=== PATIENT | female | born 1985 | race Caucasian/White ===

== ENCOUNTER → 2016-10-20 | Outpatient (CLI) | payer BC ==
--- NOTE | 2016-10-21 10:15 | MR ---
EXAMINATION: MRI right shoulder HISTORY: Pain COMPARISON: Radiographs dated 10/15/2016 TECHNIQUE: Multiplanar and multisequence images obtained through the right shoulder without contrast . FINDINGS: There is a type II acromion. There is a small amount of fluid signal within the rotator cu ff interval, with mildly increased signal within the adjacent myotendinous supraspinatus. There is a trace subdeltoid fluid signal. Otherwise the supraspinatus and infraspinatus tendons appear intact. The long head biceps tendon is present within the bicipital groove. The subscapularis and teres min or tendons appear intact. There appears to be focal thinning of the mid glenoid articular cartilage. The inferior glenohumeral ligament appears intact. There is no joint effusion. No suspicious bone m arrow signal changes. IMPRESSION: 1. Increased signal within the rotator cuff interval with likely tendinopathy the myotendinous junct ion of the supraspinatus. 2. Mild focal articular cartilage thinning within the glenohumeral joint.
== END ==
LOC: MW.MRI 12:55
PROVIDERS: ATTEND Family Medicine
DX: M25.511 Pain in right shoulder (principal); M25.811 Other specified joint disorders, right shoulder
CPT/HCPCS: 73221-26-RT; 73221-RT

== ENCOUNTER 2018-01-27 18:00 | Inpatient (IN) | payer BC ==
[2018-01-27] MEDS ORDERED: Sodium Chloride 0.9% 2.5 ML Syringe FLUSH PRN (18:28)
[2018-01-27] MEDS ORDERED: Methylergonovine 0.2 MG/1 ML Amp IM PRN (18:28)
[2018-01-27] MEDS ORDERED: Nalbuphine 10 MG/1 ML Vial IVPUSH PRN (18:28)
[2018-01-27] MEDS ORDERED: Butorphanol 1 MG/ML SDV IVPUSH PRN (18:28)
[2018-01-27] MEDS ORDERED: Carboprost Tromethamine 250 MCG/1 ML Amp IM PRN (18:28)
[2018-01-27] MEDS ORDERED: Water For Irrigation,Sterile 1,000 ML Container IRR PRN (18:28)
[2018-01-27] MEDS ORDERED: Tranexamic Acid 1,000 MG in Sodium Chloride 0.9% 100 ML IV PRN (18:28)
[2018-01-27] MEDS ORDERED: Sodium Chloride 0.9% 10 ML Syringe FLUSH PRN (18:28)
[2018-01-27] MEDS ORDERED: Misoprostol 200 MCG Tab PO PRN (18:28)
[2018-01-27] MEDS ORDERED: Lidocaine 1% 50 ML MDV INJECT PRN (18:28)
[2018-01-27] MEDS ORDERED: Oxytocin/0.9 % Sodium Chloride 30 UNIT/500 ML BAG IV SCH (18:30)
[2018-01-27] MEDS: Lactated Ringers 1,000 ML IV SCH ×2 (19:40→20:14)
[2018-01-27] MEDS ORDERED: Bupivacaine 0.5% 10 ML SDV ONE (20:16)
--- NOTE | 2018-01-27 20:39 | PCM.PREANE ---
Preanesthetic Assessment - Anesthesia/Transfusion/Family Hx Anesthesia History: Prior Anesthesia Without Reaction Family History of Anesthesia Reaction: No Transfusion History: No Prior Transfusion(s) - Review of Systems General: No Symptoms Pulmonary: No Symptoms Cardiovascular: No Symptoms Gastrointestinal: No Symptoms Neurological: No Symptoms Other: Reports: None - Physical Assessment Height: 5 ft 4 in Weight: 69.4 kg ASA Class: 2 Mental Status: Alert & Oriented x3 Airway Class: Mallampati = 2 Dentition: Reports: Normal Dentition Thyro-Mental Finger Breadths: 3 Mouth Opening Finger Breadths: 3 ROM/Head Extension: Full Lungs: Clear to Auscultation, Normal Respiratory Effort Cardiovascular: Regular Rate, Regular Rhythm - Lab Values: Laboratory Last Values WBC 13.41 K/uL (4.0-11.0) H 01/27/18 18:50 RBC 3.75 M/uL (4.30-5.90) L 01/27/18 18:50 Hgb 10.9 g/dL (12.0-16.0) L 01/27/18 18:50 Hct 32.3 % (36.0-46.0) L 01/27/18 18:50 MCV 86.1 fL (80.0-98.0) 01/27/18 18:50 MCH 29.1 pg (27.0-32.0) 01/27/18 18:50 MCHC 33.7 g/dL (31.0-37.0) 01/27/18 18:50 RDW Std Deviation 40.0 fl (28.0-62.0) 01/27/18 18:50 RDW Coeff of Amari 13 % (11.0-15.0) 01/27/18 18:50 Plt Count 184 K/uL (150-400) 01/27/18 18:50 MPV 12.10 fL (7.40-12.00) H 01/27/18 18:50 Nucleated RBC % 0.0 /100WBC 01/27/18 18:50 Nucleated RBCs # 0 K/uL 01/27/18 18:50 Membrane Rupture POSITIVE 01/27/18 19:25 Blood Type A POSITIVE 01/27/18 18:50 Antibody Screen NEGATIVE 01/27/18 18:50 - Allergies Allergies/Adverse Reactions: Allergies Allergy/AdvReac Type Severity Reaction Status Date / Time Sulfa (Sulfonamide Allergy Rash Verified 03/04/16 11:59 Antibiotics) - Acknowledgements Anesthesia Type Planned: Epidural Pt an Appropriate Candidate for the Planned Anesthesia: Yes Alternatives and Risks of Anesthesia Discussed w Pt/Guardian: Yes Pt/Guardian Understands and Agrees with Anesthesia Plan: Yes PreAnesthesia Questionnaire - Past Health History Medical/Surgical History: Denies Medical/Surgical History Other HEENT History: wears glasses Cardiovascular History: Reports: None Respiratory History: Reports: None Gastrointestinal History: Reports: None Other Genitourinary History: cervical laceration repair at age 13 RADIUS GRINDER History: Reports: : 2 Para: 1 LMP (Approximate): Other OB/BYN History: cervical laceration at age 13, surgically repaired Musculoskeletal History: Reports: Fracture Other Musculoskeletal History: hx of fx ankle Neurological History: Reports: None Psychiatric History: Reports: None Endocrine/Metabolic History: Reports: None Hematologic History: Reports: None Immunologic History: Reports: None Oncologic (Cancer) History: Reports: None Dermatologic History: Reports: None - Infectious Disease History Infectious Disease History: Reports: Chicken Pox Other Infectious Disease History: chicken pox in childhood - Past Surgical History Head Surgeries/Procedures: Reports: None HEENT Surgical History: Reports: None Cardiovascular Surgical History: Reports: None Female Surgical History: Reports: Other (See Below) Endocrine Surgical History: Reports: None Musculoskeletal Surgical History: Reports: None - SUBSTANCE USE Smoking Status *Q: Never Smoker Tobacco Use Within Last Twelve Months: No Second Hand Smoke Exposure: No Recreational Drug Use History: No - HOME MEDS Home Medications: Home Meds Amoxicillin [Amoxil] 500 mg PO Q8H #21 cap 03/04/16 [Rx] Chlorhexidine Gluconate [Peridex 0.12% Rinse] 15 ml BUCCAL ASDIRECTED #1 cup [Rx] Etodolac [Lodine] 400 mg PO TID #18 cap 03/04/16 [Rx] PNV95/Ferrous Fumarate/FA [ Tablet] 1 each PO DAILY 03/04/16 [History] Progesterone,Micronized [Progesterone] 03/04/16 [History] - CURRENT (IN HOUSE) MEDS Current Meds: Current Medications Butorphanol Tartrate (Stadol) 1 mg IVPUSH Q1H PRN PRN Reason: Pain Carboprost Tromethamine (Hemabate Ds) 250 mcg IM ASDIRECTED PRN PRN Reason: Post Hemorrhage Lactated Ringer's (Ringers, Lactated) 1,000 mls @ 150 mls/hr IV ASDIRECTED [facility] Last Admin: 01/27/18 20:14 Dose: 500 mls/hr Oxytocin/Sodium Chloride (Oxytocin 30 Unit/500 Ml-Ns) 30 unit in 500 mls @ 500 mls/hr IV TITRATE [facility] Tranexamic Acid 1,000 mg/ (Sodium Chloride) 110 mls @ 660 mls/hr IV ONETIME PRN PRN Reason: Bleeding Lidocaine HCl (Xylocaine 1%) 50 ml INJECT .ONCE PRN PRN Reason: Laceration repair Methylergonovine Maleate (Methergine) 0.2 mg IM ASDIRECTED PRN PRN Reason: Post Hemorrhage Misoprostol (Cytotec) 200 mcg PO .ONCE PRN PRN Reason: Post Hemorrhage Nalbuphine HCl (Nubain) 10 mg IVPUSH Q1H PRN PRN Reason: Pain (severe 7-10) Sodium Chloride (Saline Flush) 10 ml FLUSH ASDIRECTED PRN PRN Reason: Keep Vein Open Sodium Chloride (Saline Flush) 2.5 ml FLUSH ASDIRECTED PRN PRN Reason: Keep Vein Open Sterile Water (Sterile Water For Irrigation) 1,000 ml IRR ASDIRECTED PRN PRN Reason: delivery Discontinued Medications Bupivacaine HCl (Sensorcaine-Mpf 0.5%) Confirm Administered Dose 10 ml .ROUTE .STK-MED ONE Stop: 01/27/18 20:17 Fentanyl/Bupivacaine HCl (Nqllnith-Vjdcr-Fi 2 Mcg/Ml-0.125%) Confirm Administered Dose 100 mls @ as directed EP .STK-MED ONE Stop: 01/27/18 19:54
[2018-01-27] MEDS ORDERED: Lanolin 100% Cream 7 GM Tube TOP PRN (21:29)
[2018-01-27] MEDS ORDERED: Witch Hazel Medicated Pads 40/Jar TOP PRN (21:29)
[2018-01-27] MEDS ORDERED: Benzocaine/Menthol 20%-0.5% Spray 78 GM Cannister TOP PRN (21:29)
[2018-01-27] MEDS ORDERED: Acetaminophen 500 MG Tab PO PRN ×2 (21:29)
[2018-01-27] MEDS ORDERED: Docusate Sodium 100 MG Cap PO PRN (21:29)
[2018-01-27] MEDS ORDERED: Ibuprofen 800 MG Tab PO PRN (21:29)
[2018-01-27] MEDS ORDERED: oxyCODONE 5 MG Tab PO PRN (21:29)
[2018-01-27] MEDS ORDERED: Ondansetron 4 MG/2 ML SDV IVPUSH PRN (21:29)
[2018-01-27] MEDS ORDERED: Bisacodyl 10 MG Supp RECTAL PRN (21:29)
--- NOTE | 2018-01-28 05:21 | OR ---
SURGEON: Haritha Rahman M.D. DATE OF PROCEDURE: 01/27/2018 PREOPERATIVE DIAGNOSES: 1. A 39 and 2 weeks' intrauterine . 2. Active labor. POSTOPERATIVE DIAGNOSES: 1. A 39 and 2 weeks' intrauterine . 2. Active labor. PROCEDURE PERFORMED: Spontaneous vaginal delivery and first-degree midline laceration repaired. ANESTHESIA: Epidural. ESTIMATED BLOOD LOSS: 300 mL. COMPLICATIONS: None. FINDINGS: Viable female, scores of 9 at 1 minute and 9 at 5 minutes, weight is pending. Spontaneous delivery of intact placenta with 3-vessel cord. DISPOSITION: to nursery and mom in LDRP, stable. PROCEDURE IN DETAIL: Elena is a 32-year-old at 39 and 2 weeks' gestational age, who presents on the evening of 01/27/2018 with regular contractions since shortly after 4:00 p.m. On initial examination, she was found to be 5 cm, 100% effaced, 0 station. heart tones 120s with variability. Therefore, she was admitted, routine labs were drawn, IV hydrated. She began having leakage of fluid just at this time. AmniSure was positive. Clear fluid was noted. The patient began to progress, became increasingly uncomfortable, underwent regional anesthesia from epidural and became more comfortable. Shortly before 9:00 p.m., she was found to be complete, 100% effaced, +2 station with a forebag present. I presented for delivery. The patient was placed in modified dorsolithotomy position with AROM of forebag and easily delivered to a +3 station. After being prepped and draped in usual aseptic manner, continued with pushing efforts, was able to push effectively, and delivered infant's head atraumatically spontaneously followed by anterior shoulder, posterior shoulder, and remainder of the body without difficulty. There was a loose nuchal cord x1 reduced manually. The infant's oropharynx and nares were bulb suctioned. Cord was clamped x2 and cut. Infant was handed off to her mother with attending nursing staff at side. Cord arterial/cord venous, cord blood sampling obtained. Light pressure was applied while the placenta was delivered spontaneously intact. Vigorous fundal uterine massage was then applied while 30 units of Pitocin was delivered in 500 mL of IV fluid. Upon inspection of cervix, vaginal sidewall, and perineum, these found to be intact except for a first-degree midline laceration repaired using 3-0 Vicryl in the usual fashion. Hemostasis appeared evident. The patient tolerated the repair well. Uterus remained firm. Sponge count and needle count were correct. The patient remained in LDRP, infant to nursery. CARLIE / JAYCEE /[id number]
--- NOTE | 2018-01-28 07:11 | PCM.PNPP ---
- General Info Date of Service: 01/28/18 Functional Status: Reports: Pain Controlled, Tolerating Diet, Ambulating, Urinating - Review of Systems General: Reports: Fatigue. Denies: Fever, Weakness Pulmonary: Denies: Shortness of Breath Cardiovascular: Denies: Chest Pain, Palpitations, Lightheadedness Gastrointestinal: Denies: Abdominal Pain, Nausea, Vomiting Genitourinary: Denies: Flank Pain Neurological: Reports: No Symptoms Psychiatric: Reports: No Symptoms - General Info Date of Service: 01/28/18 - Patient Data Vital Signs - Most Recent: Last Vital Signs Temp 36.8 C 01/28/18 05:10 Pulse 69 01/28/18 05:10 Resp 15 01/28/18 05:10 BP 122/71 01/28/18 05:10 Pulse Ox 96 01/28/18 05:10 Weight - Most Recent: 69.4 kg Lab Results - Last 24 Hours: Laboratory Results - last 24 hr 01/27/18 01/27/18 01/27/18 Range/Units 18:50 18:50 19:25 WBC 13.41 H (4.0-11.0) K/uL RBC 3.75 L (4.30-5.90) M/uL Hgb 10.9 L (12.0-16.0) g/dL Hct 32.3 L (36.0-46.0) % MCV 86.1 (80.0-98.0) fL MCH 29.1 (27.0-32.0) pg MCHC 33.7 (31.0-37.0) g/dL RDW Std Deviation 40.0 (28.0-62.0) fl RDW Coeff of Amari 13 (11.0-15.0) % Plt Count 184 (150-400) K/uL MPV 12.10 H (7.40-12.00) fL Nucleated RBC % 0.0 /100WBC Nucleated RBCs # 0 K/uL Cord ABG pH (7.18-7.38) Cord ABG Base Excess (-10--2) Cord VBG pH (7.25-7.45) Cord VBG Base Excess (-10--2) Membrane Rupture POSITIVE Blood Type A POSITIVE Antibody Screen NEGATIVE 01/27/18 01/28/18 Range/Units 20:52 05:51 WBC (4.0-11.0) K/uL RBC (4.30-5.90) M/uL Hgb 10.4 L (12.0-16.0) g/dL Hct 31.0 L (36.0-46.0) % MCV (80.0-98.0) fL MCH (27.0-32.0) pg MCHC (31.0-37.0) g/dL RDW Std Deviation (28.0-62.0) fl RDW Coeff of Amari (11.0-15.0) % Plt Count (150-400) K/uL MPV (7.40-12.00) fL Nucleated RBC % /100WBC Nucleated RBCs # K/uL Cord ABG pH 7.198 (7.18-7.38) Cord ABG Base Excess -8 (-10--2) Cord VBG pH 7.296 (7.25-7.45) Cord VBG Base Excess -7 (-10--2) Membrane Rupture Blood Type Antibody Screen Med Orders - Current: Current Medications Acetaminophen (Tylenol Extra Strength) 500 mg PO Q4H PRN PRN Reason: Pain Acetaminophen (Tylenol Extra Strength) 1,000 mg PO Q4H PRN PRN Reason: Pain Benzocaine/Menthol (Dermoplast Pain Relief 20%-0.5% [place]) 78 gm TOP ASDIRECTED PRN PRN Reason: Perineal Comfort Measure Last Admin: 01/28/18 02:11 Dose: 1 can Bisacodyl (Dulcolax) 10 mg RECTAL .ONCE PRN PRN Reason: Constipation Carboprost Tromethamine (Hemabate Ds) 250 mcg IM ASDIRECTED PRN PRN Reason: Post Hemorrhage Docusate Sodium (Colace) 100 mg PO BID PRN PRN Reason: Constipation Emollient Ointment (Lansinoh Hpa) 0 gm TOP ASDIRECTED PRN PRN Reason: Sore Nipples Lactated Ringer's (Ringers, Lactated) 1,000 mls @ 150 mls/hr IV ASDIRECTED BERE Last Admin: 01/27/18 20:14 Dose: 500 mls/hr Oxytocin/Sodium Chloride (Oxytocin 30 Unit/500 Ml-Ns) 30 unit in 500 mls @ 500 mls/hr IV TITRATE BERE Tranexamic Acid 1,000 mg/ (Sodium Chloride) 110 mls @ 660 mls/hr IV ONETIME PRN PRN Reason: Bleeding Ibuprofen (Motrin) 400 mg PO Q4H PRN PRN Reason: Pain Ibuprofen (Motrin) 800 mg PO Q6H PRN PRN Reason: Pain Last Admin: 01/28/18 02:10 Dose: 800 mg Methylergonovine Maleate (Methergine) 0.2 mg IM ASDIRECTED PRN PRN Reason: Post Hemorrhage Misoprostol (Cytotec) 200 mcg PO .ONCE PRN PRN Reason: Post Hemorrhage Ondansetron HCl (Zofran) 4 mg IVPUSH Q6H PRN PRN Reason: Nausea/Vomiting Oxycodone HCl (Oxycodone) 5 mg PO Q2H PRN PRN Reason: Pain Sodium Chloride (Saline Flush) 10 ml FLUSH ASDIRECTED PRN PRN Reason: Keep Vein Open Sodium Chloride (Saline Flush) 2.5 ml FLUSH ASDIRECTED PRN PRN Reason: Keep Vein Open Sterile Water (Sterile Water For Irrigation) 1,000 ml IRR ASDIRECTED PRN PRN Reason: delivery Witprabhu Juarez (Tucks) 1 pad TOP ASDIRECTED PRN PRN Reason: comfort care Last Admin: 01/28/18 02:11 Dose: 1 tub Discontinued Medications Bupivacaine HCl (Sensorcaine-Mpf 0.5%) Confirm Administered Dose 10 ml .ROUTE .STK-MED ONE Stop: 01/27/18 20:17 Butorphanol Tartrate (Stadol) 1 mg IVPUSH Q1H PRN PRN Reason: Pain Fentanyl/Bupivacaine HCl (Kvfphpip-Jbaxh-Bv 2 Mcg/Ml-0.125%) Confirm Administered Dose 100 mls @ as directed EP .STK-MED ONE Stop: 01/27/18 19:54 Lidocaine HCl (Xylocaine 1%) 50 ml INJECT .ONCE PRN PRN Reason: Laceration repair Nalbuphine HCl (Nubain) 10 mg IVPUSH Q1H PRN PRN Reason: Pain (severe 7-10) - Interaction Support Person: - Exam General: Alert, Oriented Lungs: Normal Respiratory Effort Cardiovascular: Regular Rate, Regular Rhythm GI/Abdominal Exam: Normal Bowel Sounds, Soft Extremities: Pedal Edema (trace). No: Itz's Sign Skin: Warm, Dry, Intact Psy/Mental Status: Alert, Normal Affect - Problem List & Annotations (1) Vaginal delivery SNOMED Code(s): 731989746 Code(s): O80 - ENCOUNTER FOR FULL-TERM UNCOMPLICATED DELIVERY Status: Acute Current Visit: No - Problem List Review Problem List Initiated/Reviewed/Updated: Yes - My Orders Last 24 Hours: My Active Orders 01/27/18 18:28 Patient Status [ADT] Routine May Shower [RC] ASDIRECTED Notify Provider [RC] PRN Up ad Estefani [RC] ASDIRECTED Vital Signs [RC] PER UNIT ROUTINE Carboprost Tromethamine [Hemabate DS] 250 mcg IM ASDIRECTED PRN Methylergonovine [Methergine] 0.2 mg IM ASDIRECTED PRN Sodium Chloride 0.9% [Saline Flush] 10 ml FLUSH ASDIRECTED PRN Sodium Chloride 0.9% [Saline Flush] 2.5 ml FLUSH ASDIRECTED PRN Tranexamic Acid [Cyklokapron] 1,000 mg Sodium Chloride 0.9% [Normal Saline] 100 ml IV ONETIME Water For Irrigation,Sterile [Sterile Water for Irrigation] 1,000 ml IRR ASDIRECTED PRN miSOPROStol [Cytotec] 200 mcg PO .ONCE PRN Peripheral IV Insertion Adult [OM.PC] Routine Resuscitation Status Routine 01/27/18 18:30 Lactated Ringers [Ringers, Lactated] 1,000 ml IV ASDIRECTED Oxytocin/0.9 % Sodium Chloride [Oxytocin 30 Unit/500 ML-NS] 30 unit in 500 ml IV TITRATE 01/27/18 21:29 Patient Status [ADT] Routine May Shower [RC] ASDIRECTED Up ad Estefani [RC] ASDIRECTED Vital Signs [RC] PER UNIT ROUTINE Acetaminophen [Tylenol Extra Strength] 1,000 mg PO Q4H PRN Acetaminophen [Tylenol Extra Strength] 500 mg PO Q4H PRN Benzocaine/Menthol [Dermoplast Pain Relief 20%-0.5% [place]] 78 gm TOP ASDIRECTED PRN Bisacodyl [Dulcolax] 10 mg RECTAL .ONCE PRN Docusate Sodium [Colace] 100 mg PO BID PRN Ibuprofen [Motrin] 400 mg PO Q4H PRN Ibuprofen [Motrin] 800 mg PO Q6H PRN Lanolin [Lansinoh HPA] See Dose Instructions TOP ASDIRECTED PRN Ondansetron [Zofran] 4 mg IVPUSH Q6H PRN Witch Ann [Tucks] 1 pad TOP ASDIRECTED PRN oxyCODONE 5 mg PO Q2H PRN Assess Lochia [WOMSER] Per Unit Routine Assess Uterine Involution [WOMSER] Per Unit Routine Peripheral IV Discontinue [OM.PC] Routine 01/27/18 21:30 Ice Therapy [OM.PC] Per Unit Routine Perineal Care [OM.PC] Per Unit Routine Sitz Bath [OM.PC] Per Unit Routine 01/28/18 07:08 Ready for Discharge [RC] PER UNIT ROUTINE - Assessment Assessment:: PPD 1 status post - Plan Plan:: Doing well overall, working with > Discharge to home later today per patient request. Infection and bleeding warnings reviewed. Follow up at [facility] 6 weeks.
[2018-01-28] MEDS: Ibuprofen 400 MG Tab PO PRN ×2 (10:26→14:59)
--- NOTE | 2018-01-28 13:56 | PCM48HPAN ---
Post Anesthesia Note - EVALUATION WITHIN 48HRS OF ANESTHETIC Vital Signs in Normal Range: Yes Patient Participated in Evaluation: Yes Respiratory Function Stable: Yes Airway Patent: Yes Cardiovascular Function Stable: Yes Hydration Status Stable: Yes Pain Control Satisfactory: Yes Nausea and Vomiting Control Satisfactory: Yes Mental Status Recovered: Yes Resp Rate: 14
[2018-01-28 19:23] VITALS: BP 124/65
== END 2018-01-28 22:45 | disposition home or self-care (01) | DRG 560 ==
LOC: MW.OBCHECK 18:00 → MW.OB 18:08 → MW.OBCHECK 18:28 → OBSVTOIN 20:52
PROVIDERS: ADMIT Obstetrics & Gynecology; ATTEND Obstetrics & Gynecology
PROC: 10E0XZZ Delivery of Products of Conception, External Approach (ICD-10-PCS; principal; 2018-01-27)
PROC: 10907ZC Drainage of Amniotic Fluid, Therapeutic from Products of Conception, Via Natural or Artificial Opening (ICD-10-PCS; 2018-01-27)
PROC: 0HQ9XZZ Repair Perineum Skin, External Approach (ICD-10-PCS; 2018-01-27)
PROC: 3E0S3GC Introduction of Other Therapeutic Substance into Epidural Space, Percutaneous Approach (ICD-10-PCS; 2018-01-27)
DX: O70.0 First degree perineal laceration during delivery (principal); Z3A.39 39 weeks gestation of pregnancy; Z37.0 Single live birth; Z82.79 Family history of other congenital malformations, deformations and chromosomal abnormalities
CPT/HCPCS: 36415; 59020; 59409; 82803; 84112; 85014; 85018; 85027; 86850; 86900; 86901; A9270-GY; J3490; J7120

== ENCOUNTER 2020-02-22 21:22 | Observation (INO) | payer BC, OTHER ==
[2020-02-22 22:54] LABS: BLOOD UREA NITROGEN,BUN 13 mg/dL (7.0-18.0); CARBON DIOXIDE,CO2 25.4 mmol/L (21.0-32.0); CHLORIDE,CL 102 mmol/L (98-107); GLUCOSE RANDOM 101 mg/dL (74-106); POTASSIUM,K 4.1 mmol/L (3.5-5.1); SODIUM,NA 138 mmol/L (136-145)
--- NOTE | 2020-02-23 00:26 | PCM.HP.2 ---
H&P History of Present Illness - General Date of Service: 02/23/20 Admit Problem/Dx: Admission Diagnosis/Problem Admission Diagnosis/Problem Ectopic Source of Information: Patient History Limitations: Reports: No Limitations - History of Present Illness Initial Comments - Free Text/Narative: Patient with onset of severe left lower quadrant pain yesterday around 5pm, with radiation towards ribs. Denies constipation, most recent bowel movement yesterday. Was seen in clinic for hCG due to positive test at home, was 511. Patient denies bleeding. Onset of Symptoms: Reports: Today Location: Reports: Abdomen (left lower quadrant) Associated Symptoms: Reports: No Other Symptoms LLQ Pain Score (Numeric/FACES): 2 - Related Data Allergies/Adverse Reactions: Allergies Allergy/AdvReac Type Severity Reaction Status Date / Time Sulfa (Sulfonamide Allergy Rash Verified 02/22/20 21:41 Antibiotics) Home Medications: Home Meds Pnv No.95/Ferrous Fum/Folic AC [ Tablet] 1 each PO DAILY 03/04/16 [History] Progesterone, Micronized [Progesterone] 03/04/16 [History] Aspirin 81 mg PO DAILY 02/22/20 [History] Past Medical History - Past Health History Medical/Surgical History: Denies Medical/Surgical History Other HEENT History: wears glasses Cardiovascular History: Reports: None Respiratory History: Reports: None Gastrointestinal History: Reports: None Other Genitourinary History: cervical laceration repair at age 13 [employer] History: Reports: : 6 Para: 2 Other OB/BYN History: cervical laceration at age 13, surgically repaired, 3 miscarriages Musculoskeletal History: Reports: Fracture Other Musculoskeletal History: hx of fx ankle Neurological History: Reports: None Psychiatric History: Reports: None Endocrine/Metabolic History: Reports: None Hematologic History: Reports: None Immunologic History: Reports: None Oncologic (Cancer) History: Reports: None Dermatologic History: Reports: None - Infectious Disease History Infectious Disease History: Reports: Chicken Pox Other Infectious Disease History: chicken pox in childhood - Past Surgical History Head Surgeries/Procedures: Reports: None HEENT Surgical History: Reports: None Cardiovascular Surgical History: Reports: None Endocrine Surgical History: Reports: None Musculoskeletal Surgical History: Reports: None Social & Family History - Family History Family Medical History: Noncontributory HEENT: Reports: None - Tobacco Use Smoking Status *Q: Never Smoker Second Hand Smoke Exposure: No - Caffeine Use Caffeine Use: Reports: Coffee - Recreational Drug Use Recreational Drug Use: No H&P Review of Systems - Review of Systems: Review Of Systems: See Below General: Reports: No Symptoms HEENT: Reports: No Symptoms Pulmonary: Reports: No Symptoms Cardiovascular: Reports: No Symptoms Gastrointestinal: Reports: Abdominal Pain Genitourinary: Reports: No Symptoms Musculoskeletal: Reports: No Symptoms Skin: Reports: No Symptoms Psychiatric: Reports: No Symptoms Neurological: Reports: No Symptoms Hematologic/Lymphatic: Reports: No Symptoms Immunologic: Reports: No Symptoms Exam - Exam Exam: See Below - Vital Signs Vital Signs: Last Vital Signs Temp 36.8 C 02/22/20 21:46 Pulse 90 02/22/20 23:45 Resp 18 02/22/20 23:45 BP 115/67 02/22/20 23:45 Pulse Ox 98 02/22/20 23:45 Weight: 60.781 kg - Exam General: Alert, Oriented Neck: Supple Lungs: Clear to Auscultation, Normal Respiratory Effort Cardiovascular: Regular Rate, Regular Rhythm GI/Abdominal Exam: Soft, No Distention, Tender (Female) Exam: Deferred Extremities: Non-Tender, No Pedal Edema Skin: Warm, Dry, Intact Neuro Extensive - Mental Status: Alert, Oriented x3 Psychiatric: Alert, Normal Affect - Patient Data Lab Results Last 24 hrs: Laboratory Results - last 24 hr 02/22/20 02/22/20 02/22/20 Range/Units 21:52 21:52 22:28 WBC (4.0-11.0) K/uL RBC (4.30-5.90) M/uL Hgb (12.0-16.0) g/dL Hct (36.0-46.0) % MCV (80.0-98.0) fL MCH (27.0-32.0) pg MCHC (31.0-37.0) g/dL RDW Std Deviation (28.0-62.0) fl RDW Coeff of Amari (11.0-15.0) % Plt Count (150-400) K/uL MPV (7.40-12.00) fL Neut % (Auto) (48.0-80.0) % Lymph % (Auto) (16.0-40.0) % Dickenson % (Auto) (0.0-15.0) % Eos % (Auto) (0.0-7.0) % Baso % (Auto) (0.0-1.5) % Neut # (Auto) (1.4-5.7) K/uL Lymph # (Auto) (0.6-2.4) K/uL [place]enson # (Auto) (0.0-0.8) K/uL Eos # (Auto) (0.0-0.7) K/uL Baso # (Auto) (0.0-0.1) K/uL Nucleated RBC % /100WBC Nucleated RBCs # K/uL Lactate 0.6 (0.20-2.00) mmol/L Sodium (136-145) mmol/L Potassium (3.5-5.1) mmol/L Chloride (98-107) mmol/L Carbon Dioxide (21.0-32.0) mmol/L BUN (7.0-18.0) mg/dL Creatinine (0.6-1.0) mg/dL Est Cr Clr Drug Dosing mL/min Estimated GFR (MDRD) ml/min Glucose (74-106) mg/dL Calcium (8.5-10.1) mg/dL HCG, Quant mIU/mL Urine Color YELLOW Urine Appearance CLEAR Urine pH 6.5 (5.0-8.0) Ur Specific [place] 1.015 (1.001-1.035) Urine Protein NEGATIVE (NEGATIVE) mg/dL Urine Glucose (UA) NEGATIVE (NEGATIVE) mg/dL Urine Ketones NEGATIVE (NEGATIVE) mg/dL Urine Occult Blood MODERATE H (NEGATIVE) Urine Nitrite NEGATIVE (NEGATIVE) Urine Bilirubin NEGATIVE (NEGATIVE) Urine Urobilinogen 0.2 (<2.0) EU/dL Ur Leukocyte Esterase NEGATIVE (NEGATIVE) Urine RBC 0-3 (0-2/HPF) Urine WBC 0-2 (0-5/HPF) Ur Epithelial Cells FEW (NONE-FEW) Urine Bacteria FEW (NEGATIVE) Urine HCG, Qual POSITIVE (NEGATIVE) Blood Type 02/22/20 02/22/20 02/22/20 Range/Units 22:28 22:28 22:28 WBC 8.31 (4.0-11.0) K/uL RBC 4.35 (4.30-5.90) M/uL Hgb 13.2 (12.0-16.0) g/dL Hct 39.1 (36.0-46.0) % MCV 89.9 (80.0-98.0) fL MCH 30.3 (27.0-32.0) pg MCHC 33.8 (31.0-37.0) g/dL RDW Std Deviation 39.3 (28.0-62.0) fl RDW Coeff of Amari 12 (11.0-15.0) % Plt Count 231 (150-400) K/uL MPV 10.90 (7.40-12.00) fL Neut % (Auto) 62.8 (48.0-80.0) % Lymph % (Auto) 31.8 (16.0-40.0) % Dickenson % (Auto) 4.5 (0.0-15.0) % Eos % (Auto) 0.8 (0.0-7.0) % Baso % (Auto) 0.1 (0.0-1.5) % Neut # (Auto) 5.2 (1.4-5.7) K/uL Lymph # (Auto) 2.6 H (0.6-2.4) K/uL Dickenson # (Auto) 0.4 (0.0-0.8) K/uL Eos # (Auto) 0.1 (0.0-0.7) K/uL Baso # (Auto) 0.0 (0.0-0.1) K/uL Nucleated RBC % 0.0 /100WBC Nucleated RBCs # 0 K/uL Lactate (0.20-2.00) mmol/L Sodium 138 (136-145) mmol/L Potassium 4.1 (3.5-5.1) mmol/L Chloride 102 (98-107) mmol/L Carbon Dioxide 25.4 (21.0-32.0) mmol/L BUN 13 (7.0-18.0) mg/dL Creatinine 0.7 (0.6-1.0) mg/dL Est Cr Clr Drug Dosing 99.63 mL/min Estimated GFR (MDRD) > 60.0 ml/min Glucose 101 (74-106) mg/dL Calcium 9.5 (8.5-10.1) mg/dL HCG, Quant 443.0 mIU/mL Urine Color Urine Appearance Urine pH (5.0-8.0) Ur Specific [place] (1.001-1.035) Urine Protein (NEGATIVE) mg/dL Urine Glucose (UA) (NEGATIVE) mg/dL Urine Ketones (NEGATIVE) mg/dL Urine Occult Blood (NEGATIVE) Urine Nitrite (NEGATIVE) Urine Bilirubin (NEGATIVE) Urine Urobilinogen (<2.0) EU/dL Ur Leukocyte Esterase (NEGATIVE) Urine RBC (0-2/HPF) Urine WBC (0-5/HPF) Ur Epithelial Cells (NONE-FEW) Urine Bacteria (NEGATIVE) Urine HCG, Qual (NEGATIVE) Blood Type 02/22/20 Range/Units 22:28 WBC (4.0-11.0) K/uL RBC (4.30-5.90) M/uL Hgb (12.0-16.0) g/dL Hct (36.0-46.0) % MCV (80.0-98.0) fL MCH (27.0-32.0) pg MCHC (31.0-37.0) g/dL RDW Std Deviation (28.0-62.0) fl RDW Coeff of Amari (11.0-15.0) % Plt Count (150-400) K/uL MPV (7.40-12.00) fL Neut % (Auto) (48.0-80.0) % Lymph % (Auto) (16.0-40.0) % Dickenson % (Auto) (0.0-15.0) % Eos % (Auto) (0.0-7.0) % Baso % (Auto) (0.0-1.5) % Neut # (Auto) (1.4-5.7) K/uL Lymph # (Auto) (0.6-2.4) K/uL Dickenson # (Auto) (0.0-0.8) K/uL Eos # (Auto) (0.0-0.7) K/uL Baso # (Auto) (0.0-0.1) K/uL Nucleated RBC % /100WBC Nucleated RBCs # K/uL Lactate (0.20-2.00) mmol/L Sodium (136-145) mmol/L Potassium (3.5-5.1) mmol/L Chloride (98-107) mmol/L Carbon Dioxide (21.0-32.0) mmol/L BUN (7.0-18.0) mg/dL Creatinine (0.6-1.0) mg/dL Est Cr Clr Drug Dosing mL/min Estimated GFR (MDRD) ml/min Glucose (74-106) mg/dL Calcium (8.5-10.1) mg/dL HCG, Quant mIU/mL Urine Color Urine Appearance Urine pH (5.0-8.0) Ur Specific [place] (1.001-1.035) Urine Protein (NEGATIVE) mg/dL Urine Glucose (UA) (NEGATIVE) mg/dL Urine Ketones (NEGATIVE) mg/dL Urine Occult Blood (NEGATIVE) Urine Nitrite (NEGATIVE) Urine Bilirubin (NEGATIVE) Urine Urobilinogen (<2.0) EU/dL Ur Leukocyte Esterase (NEGATIVE) Urine RBC (0-2/HPF) Urine WBC (0-5/HPF) Ur Epithelial Cells (NONE-FEW) Urine Bacteria (NEGATIVE) Urine HCG, Qual (NEGATIVE) Blood Type A POSITIVE Result Diagrams: 02/22/20 22:28 02/22/20 22:28 Sepsis Event Note - Evaluation Sepsis Screening Result: No Definite Risk - Focused Exam Vital Signs: Vital Signs Temp Pulse Resp BP Pulse Ox 02/22/20 23:45 90 18 115/67 98 02/22/20 21:46 36.8 C 92 20 140/96 H 97 *Q Meaningful Use (ADM) - VTE *Q VTE Mechanical Contraindications *Q: At Risk for Falls VTE Pharmacological Contraindications *Q: Active Hemorrhage - VTE Risk Assess *Q Each Risk Factor Represents 1 Point: or , Less than 1 Month Total Score 1 Point Risk Factors: 1 Each Risk Factor Represents 2 Points: None Total Score 2 Point Risk Factors: 0 Each Risk Factor Represents 3 Points: None Total Score 3 Point Risk Factors: 0 Each Risk Factor Represents 5 Points: None Total Score 5 Point Risk Factors: 0 Venous Thromboembolism Risk Factor Score *Q: 1 - Stroke *Q Aspirin Contraindications Stroke *Q: Other (Use Special Inst) Anticoagulation Contraindications Stroke *Q: Med/TX Not Indicated/Need Antithrombotic Contraindications Stroke *Q: Med/TX Not Indicated/Need Thrombolytic/Fibrinolytic Contraindications Stroke *Q: Med/TX Not Indicated/Need Statin Contraindications Stroke *Q: Med/TX Not Indicated/Need Rehabilitation Assessment Contraindication *Q: Med/tx not indicated/need - AMI *Q Aspirin Contraindications AMI *Q: Med/TX Not Indicated/Need Thrombolytic/Fibrinolytic Contraindications IV (AMI) *Q: Med/tx not indicated/need Statin Contraindications AMI *Q: Med/TX Not Indicated/Need - Problem List (1) Ectopic SNOMED Code(s): 63949992 ICD Code: O00.90 - UNSPECIFIED ECTOPIC WITHOUT INTRAUTERINE PREGNA NCY Status: Acute Current Visit: Yes Problem List Initiated/Reviewed/Updated: Yes Orders Last 24hrs: Active Orders 24 hr Category Date Time Status Admission Status [Patient Status] [ADT] Stat ADT 02/23/20 00:04 Active Pelvic Exam, Set Up [RC] ASDIRECTED Care 02/22/20 22:10 Active NPO Now [Nothing per Oral Now Diet] [DIET] Diet 02/22/20 Dinner Active OB 1st Tri Sgl 1st Gest [US] Stat Exams 02/22/20 22:10 Taken CORONAVIRUS COVID-19 PCR PHL Stat Lab 02/22/20 23:54 Ordered TYPE AND SCREEN [BBK] Stat Lab 02/22/20 23:45 Received Assessment/Plan Comment:: Based on US images, suspicious for ruptured ectopic . hCG has decreased since earlier on 02/22/2020. Reviewed need for surgical management of suspected ruptured ectopic - diagnostic laparoscopy with possible unilateral salpingectomy and/or oophorectomy. Reviewed risks of surgery, including but not limited to, infection, bleeding with possible need for transfusion, injury to surrounding organs/vessels/nerves, anesthesia complications, and . Alternative includes not performing surgery, with risk of continued bleeding and loss of life. Patient voiced understanding and agrees to proceed with surgery. Rh positive; Rhogam not indicated. All questions answered.
[2020-02-23] MEDS ORDERED: Sodium Chloride 0.9% 2.5 ML Syringe FLUSH PRN (00:27)
[2020-02-23] MEDS ORDERED: Sodium Chloride 0.9% 10 ML Syringe FLUSH PRN (00:27)
[2020-02-23] MEDS ORDERED: Sodium Chloride 0.9% 10 ML SDV IV PRN (00:27)
[2020-02-23] MEDS ORDERED: Lactated Ringers 1,000 ML IV SCH (00:30)
--- NOTE | 2020-02-23 00:34 | US ---
INDICATION: Pelvic pain and vaginal bleeding. COMPARISON: None available. FINDINGS: Transvaginal and transabdominal ultrasound examination of the female pelvis was performed. Initial examination is performed with transabdominal technique and transvaginal technique is used for better visualization of the pelvic structures. There is fluid in a cystic structure located in the superior uterine fundus, without a good double decidual sac sign. This is probably a pseudo gestational sac. The pseudo gestational sac measures 1.1 centimeters in greatest diameter. It does not have any parts within its. The uterus is anteverted with no evidence of mass. It measures 8.0 x 3.8 x 4.8 cm. The endometrial lining is normal in thickness at 7 mm. The left ovary contains several dominant cysts, the largest measuring 3.0 x 2.6 x 2.9 centimeters with increased color Doppler flow, worrisome for an ectopic gestation in the left ovary. The smaller cyst is located immediately adjacent to the dominant cyst and measures 2.1 x 1.1 x 1.0 centimeters. The cysts result in mild enlargement of the left ovary, measuring 4.5 x 3.3 by 4.2 centimeters. The right ovary is normal in appearance with normal appearing follicular cysts and normal color Doppler flow. It measures 3.0 x 1.9 x 2.8 centimeters. There is a moderate amount of free fluid in the left pelvis around the left ovary, worrisome for hemorrhage related to an ectopic gestation. Moderate free fluid is seen anterior to the uterine fundus and in the cul-de-sac as well. Milder free fluid extends to the right around the ovary. I discussed the findings with Dr. Ha at 0028 hours on 02/23/2020. IMPRESSION: Findings worrisome for an ectopic gestation in the left ovary as described above. Fluid collection located within the superior uterine cavity appears to be a pseudo gestational sac. Moderate amount of free fluid seen around the left ovary and adjacent to the uterus with milder free fluid adjacent to the right ovary. Dictated by Anibal Tong MD @ Feb 23 2020 12:24AM Signed by Dr. Anibal Tong @ Feb 23 2020 12:33AM
[2020-02-23] MEDS ORDERED: Propofol 200 MG/20 ML SDV ONE (01:02)
[2020-02-23] MEDS ORDERED: Midazolam 1 MG/ML 2 ML SDV ONE (01:02)
[2020-02-23] MEDS ORDERED: fentaNYL 250 MCG/5 ML SDV ONE (01:03)
[2020-02-23] MEDS ORDERED: Rocuronium Bromide 50 MG/5 ML Syringe ONE (01:03)
[2020-02-23] MEDS ORDERED: Ondansetron 4 MG/2 ML SDV ONE (01:03)
[2020-02-23] MEDS ORDERED: Lidocaine 2% 5 ML SDV ONE (01:03)
[2020-02-23] MEDS ORDERED: Glycopyrrolate 0.2 MG/ML SDV ONE (01:03)
[2020-02-23] MEDS ORDERED: Ketorolac 30 MG/ML SDV ONE (01:03)
[2020-02-23] MEDS ORDERED: Acetaminophen 1,000 MG in Premix Bag 1 BAG IV PRN (01:12)
[2020-02-23] MEDS ORDERED: fentaNYL 100 MCG/2 ML SDV IVPUSH PRN (01:12)
--- NOTE | 2020-02-23 01:12 | PCM.PREANE ---
Preanesthetic Assessment - Anesthesia/Transfusion/Family Hx Anesthesia History: Prior Anesthesia Without Reaction Family History of Anesthesia Reaction: No Transfusion History: No Prior Transfusion(s) - Physical Assessment NPO Status Date: 02/22/20 NPO Status Time: 19:00 Vital Signs: Last Vital Signs Temp 36.5 C 02/23/20 00:22 Pulse 83 02/23/20 00:22 Resp 18 02/23/20 00:22 BP 119/84 02/23/20 00:22 Pulse Ox 98 02/23/20 00:22 Height: 1.63 m Weight: 60.781 kg ASA Class: 1E - Lab Values: Laboratory Last Values WBC 8.31 K/uL (4.0-11.0) 02/22/20: RBC 4.35 M/uL (4.30-5.90) 02/22/20 22: Hgb 13.2 g/dL (12.0-16.0) 02/22/20 22: Hct 39.1 % (36.0-46.0) 02/22/20 22: MCV 89.9 fL (80.0-98.0) 02/22/20 22: MCH 30.3 pg (27.0-32.0) 02/22/20 22: MCHC 33.8 g/dL (31.0-37.0) 02/22/20: RDW Std Deviation 39.3 fl (28.0-62.0) 02/22/20: RDW Coeff of Amari 12 % (11.0-15.0) 02/22/20: Plt Count 231 K/uL (150-400) 02/22/20 22: MPV 10.90 fL (7.40-12.00) 02/22/20 22: Neut % (Auto) 62.8 % (48.0-80.0) 02/22/20: Lymph % (Auto) 31.8 % (16.0-40.0) 02/22/20: [place] % (Auto) 4.5 % (0.0-15.0) 02/22/20: Eos % (Auto) 0.8 % (0.0-7.0) 02/22/20:28 Baso % (Auto) 0.1 % (0.0-1.5) 02/22/20 22: Neut # (Auto) 5.2 K/uL (1.4-5.7) 02/22/20 22: Lymph # (Auto) 2.6 K/uL (0.6-2.4) H 02/22/20 22: [place] # (Auto) 0.4 K/uL (0.0-0.8) 02/22/20 22: Eos # (Auto) 0.1 K/uL (0.0-0.7) 02/22/20 22: Baso # (Auto) 0.0 K/uL (0.0-0.1) 02/22/20: Nucleated RBC % 0.0 /100WBC 02/22/20 22: Nucleated RBCs # 0 K/uL 02/22/20: Lactate 0.6 mmol/L (0.20-2.00) 02/22/20 22: Sodium 138 mmol/L (136-145) 02/22/20 22: Potassium 4.1 mmol/L (3.5-5.1) 02/22/20 22: Chloride 102 mmol/L (98-107) 02/22/20 22: Carbon Dioxide 25.4 mmol/L (21.0-32.0) 02/22/20 22: BUN 13 mg/dL (7.0-18.0) 02/22/20 22: Creatinine 0.7 mg/dL (0.6-1.0) 02/22/20 22: Est Cr Clr Drug Dosing 99.63 mL/min 02/22/20 22:28 Estimated GFR (MDRD) > 60.0 ml/min 02/22/20 22: Glucose 101 mg/dL (74-106) 02/22/20 22: Calcium 9.5 mg/dL (8.5-10.1) 02/22/20 22:28 HCG, Quant 443.0 mIU/mL 02/22/20 22:28 Urine Color YELLOW 02/22/20 21:52 Urine Appearance CLEAR 02/22/20 21:52 Urine pH 6.5 (5.0-8.0) 09/04/20 21:52 Ur Specific [place] 1.015 (1.001-1.035) 02/22/20 21:52 Urine Protein NEGATIVE mg/dL (NEGATIVE) 02/22/20 21:52 Urine Glucose (UA) NEGATIVE mg/dL (NEGATIVE) 02/22/20 21:52 Urine Ketones NEGATIVE mg/dL (NEGATIVE) 02/22/20 21:52 Urine Occult Blood MODERATE (NEGATIVE) H 02/22/20 21:52 Urine Nitrite NEGATIVE (NEGATIVE) 02/22/20 21:52 Urine Bilirubin NEGATIVE (NEGATIVE) 02/22/20 21:52 Urine Urobilinogen 0.2 EU/dL (<2.0) 02/22/20 21:52 Ur Leukocyte Esterase NEGATIVE (NEGATIVE) 02/22/20 21:52 Urine RBC 0-3 (0-2/HPF) 02/22/20 21:52 Urine WBC 0-2 (0-5/HPF) 02/22/20 21:52 Ur Epithelial Cells FEW (NONE-FEW) 02/22/20 21:52 Urine Bacteria FEW (NEGATIVE) 02/22/20 21:52 Urine HCG, Qual POSITIVE (NEGATIVE) 02/22/20 21:52 SARS Virus RNA (PCR) NEGATIVE (NEGATIVE) 02/22/20 23:45 Blood Type A POSITIVE 02/22/20 23:45 Antibody Screen NEGATIVE 02/22/20 23:45 - Allergies Allergies/Adverse Reactions: Allergies Allergy/AdvReac Type Severity Reaction Status Date / Time Sulfa (Sulfonamide Allergy Rash Verified 02/22/20 21:41 Antibiotics) - Acknowledgements Anesthesia Type Planned: General Anesthesia Pt an Appropriate Candidate for the Planned Anesthesia: Yes Alternatives and Risks of Anesthesia Discussed w Pt/Guardian: Yes Pt/Guardian Understands and Agrees with Anesthesia Plan: Yes PreAnesthesia Questionnaire - Past Health History Medical/Surgical History: Denies Medical/Surgical History Other HEENT History: wears glasses Cardiovascular History: Reports: None Respiratory History: Reports: None Gastrointestinal History: Reports: None Other Genitourinary History: cervical laceration repair at age 13 [employer] History: Reports: Other OB/BYN History: cervical laceration at age 13, surgically repaired, 3 miscarriages Musculoskeletal History: Reports: Fracture Other Musculoskeletal History: hx of fx ankle Neurological History: Reports: None Psychiatric History: Reports: None Endocrine/Metabolic History: Reports: None Hematologic History: Reports: None Immunologic History: Reports: None Oncologic (Cancer) History: Reports: None Dermatologic History: Reports: None - Infectious Disease History Infectious Disease History: Reports: Chicken Pox Other Infectious Disease History: chicken pox in childhood - Past Surgical History Head Surgeries/Procedures: Reports: None HEENT Surgical History: Reports: None Cardiovascular Surgical History: Reports: None Endocrine Surgical History: Reports: None Musculoskeletal Surgical History: Reports: None - SUBSTANCE USE Smoking Status *Q: Never Smoker Second Hand Smoke Exposure: No Recreational Drug Use History: No - HOME MEDS Home Medications: Home Meds Pnv No.95/Ferrous Fum/Folic AC [ Tablet] 1 each PO DAILY 03/04/16 [History] Progesterone, Micronized [Progesterone] 03/04/16 [History] Aspirin 81 mg PO DAILY 02/22/20 [History] - CURRENT (IN HOUSE) MEDS Current Meds: Current Medications Lactated Ringer's (Ringers, Lactated) 1,000 mls @ 125 mls/hr IV ASDIRECTED BERE Sodium Chloride (Saline Flush) 10 ml FLUSH ASDIRECTED PRN PRN Reason: Keep Vein Open Sodium Chloride (Saline Flush) 2.5 ml FLUSH ASDIRECTED PRN PRN Reason: Keep Vein Open Sodium Chloride (Normal Saline) 10 ml IV ASDIRECTED PRN PRN Reason: IV Use Discontinued Medications Fentanyl (Sublimaze) Confirm Administered Dose 250 mcg .ROUTE .STK-MED ONE Stop: 02/23/20 01:04 Glycopyrrolate (Robinul) Confirm Administered Dose 0.8 mg .ROUTE .STK-MED ONE Stop: 02/23/20 01:04 Ketorolac Tromethamine (Toradol) Confirm Administered Dose 30 mg .ROUTE .STK-MED ONE Stop: 02/23/20 01:04 Lidocaine (Xylocaine-Mpf 2%) Confirm Administered Dose 5 ml .ROUTE .STK-MED ONE Stop: 02/23/20 01:04 Midazolam HCl (Versed 1 Mg/Ml) Confirm Administered Dose 2 mg .ROUTE .STK-MED ONE Stop: 02/23/20 01:03 Ondansetron HCl (Zofran) Confirm Administered Dose 4 mg .ROUTE .STK-MED ONE Stop: 02/23/20 01:04 Propofol (Diprivan 20 Ml) Confirm Administered Dose 200 mg .ROUTE .STK-MED ONE Stop: 02/23/20 01:03 Rocuronium [place] (Rocuronium [place]) Confirm Administered Dose 50 mg .ROUTE .[facility]-MED ONE Stop: 02/23/20 01:04
[2020-02-23] MEDS ORDERED: Bupivacaine 0.25% 10 ML SDV ONE (01:20)
[2020-02-23] MEDS ORDERED: fentaNYL 100 MCG/2 ML SDV ONE (02:26)
[2020-02-23] MEDS ORDERED: Octyl 2-Cyanoacrylate 1 Tube ONE (02:40)
[2020-02-23] MEDS ORDERED: Acetaminophen/HYDROcodone 325-5 MG Tab PO PRN ×2 (03:12)
[2020-02-23] MEDS ORDERED: Ketorolac 15 MG/ML SDV IVPUSH ONE (03:12)
--- NOTE | 2020-02-23 03:19 | PCM.OPNOTE ---
<Donavan Dove - Last Filed: 02/23/20 03:14> - General Post-Op/Procedure Note Date of Surgery/Procedure: 02/23/20 Operative Procedure(s): Laparoscopic left salpingoophorectomy Findings: Ruptured ectopic apparently on left tube with ovary involvement, blood in the pelvis. Left ovary was large, cystic in appearance and bleeding and the left fallopian tube was dilated and bleeding. Hence, left tube and ovary were taken out. Pre Op Diagnosis: Ectopic in left fallopian tube Post-Op Diagnosis: Ruptured ectopic , possible ovarian cyst Anesthesia Technique: General ET Tube Primary Surgeon: Tova Ha Anesthesia Provider: Tod Cruz Online [employer] Manager: Donavan Dove Fluid Replacement, Intraop: 1,100 EBL in mLs: 150 Complications: None known Condition: Fair Free Text/Narrative:: Patient is a 34 y.o. female who first started experiencing low abdominal pain late yesterday. She had been seen at the clinic earlier yesterday and had had a teleconference with a fertility specialist (Dr. Laith Byrnes in [place]). Later in the evening, she started feeling pain for which Tylenol was not helpful. She came to the ER and and was found to have an ectopic . <Tova Ha - Last Filed: 02/23/20 03:35> - General Post-Op/Procedure Note Operative Procedure(s): Additional: Diagnostic laparoscopy. Evacuation of hemoperitoneum Free Text/Narrative:: Intake & Output 02/22/20 02/22/20 02/23/20 14:59 22:59 06:59 Intake Total 2300 Balance 2300 I have reviewed and agree with the above.
--- NOTE | 2020-02-23 03:21 | PCM.POSTAN ---
POST ANESTHESIA ASSESSMENT - MENTAL STATUS Mental Status: Alert - VITAL SIGNS Vital Signs: Last Vital Signs Temp 36.5 C 02/23/20 00:22 Pulse 83 02/23/20 00:22 Resp 18 02/23/20 00:22 BP 119/84 02/23/20 00:22 Pulse Ox 98 02/23/20 00:22 - RESPIRATORY Respiratory Status: Respiratory Rate WNL - CARDIOVASCULAR CV Status: Pulse Rate WNL - GASTROINTESTINAL GI Status: No Symptoms - POST OP HYDRATION Hydration Status: Adequate & Stable
--- NOTE | 2020-02-23 04:00 | EDM.PDOC ---
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 Patient discovered she was today when she took 3 home tests which were positive. -0-3-0. Approximately 5 weeks by LMP of 02/13/2020. Developed left lower quadrant abdominal pain accompanied by some scant vaginal bleeding. Called her OB clinic and was directed to come to the emergency department. Here she complains some of some very mild left-sided low pelvic pain that radiates to the left lower back. She is not having any ongoing vaginal bleeding at present. Denies any fever, nausea, vomiting, diarrhea, hemoptysis, hematemesis, or rectal bleeding. No known history of any recent abdominal trauma. No other complaints. ROS: A 10-point review of systems was negative, except as noted in the HPI (or in the ROS section of this note). Past medical history: Reviewed, no additional pertinent history. Surgical history: Reviewed in system, no additional pertinent history. Social history: Reviewed in system, no additional pertinent history. Family history: Reviewed in system, no additional pertinent history. PHYSICAL EXAM Vital signs reviewed. Nursing notes reviewed. Constitutional: Awake, alert, non-distressed. Head: Normocephalic, atraumatic. Eyes: EOMI, conjunctiva normal, no discharge, no scleral icterus. Ears, Nose, Throat: External ears and nose normal, moist oral mucosa. Cardiovascular: Tachycardic, 2+ radial pulse, capillary refill less than 2 seconds. Pulmonary: normal work of breathing, no accessory muscle use. Abdomen/GI: Soft, mild left lower quadrant tenderness, nondistended, no guarding or rigidity, no masses. Musculoskeletal: No deformities. Integumentary: Appropriate color for ethnicity, warm, dry, no pallor or jaundice, no rash. Neurologic: Alert, answering questions appropriately, normal speech, no facial droop, moving all extremities well. Psychiatric: Appropriate mood and affect, normal thought process. Onset: Today Location: Reports: Abdomen (left lower quadrant) Associated Symptoms: Reports: No Other Symptoms LLQ Pain Score (Numeric/FACES): 2 - Related Data Allergies Allergy/AdvReac Type Severity Reaction Status Date / Time Sulfa (Sulfonamide Allergy Rash Verified 02/22/20 21:41 Antibiotics) Home Meds: Home Meds Pnv No.95/Ferrous Fum/Folic AC [ Tablet] 1 each PO DAILY 03/04/16 [History] Progesterone, Micronized [Progesterone] 03/04/16 [History] Aspirin 81 mg PO DAILY 02/22/20 [History] Hydrocodone/Acetaminophen [[place] 5-325 Tablet] 1 - 2 each PO Q6H PRN #15 tablet 02/23/20 [Rx] Hydrocodone/Acetaminophen [[place] 5-325 Tablet] 1 - 2 each PO Q6H PRN #15 tablet 02/23/20 [Rx] Ibuprofen 800 mg PO Q8H PRN #40 tablet 02/23/20 [Rx] Ibuprofen 800 mg PO Q8H PRN #40 tablet 02/23/20 [Rx] Past Medical History - Past Health History Medical/Surgical History: Denies Medical/Surgical History Other HEENT History: wears glasses Cardiovascular History: Reports: None Respiratory History: Reports: None Gastrointestinal History: Reports: None Other Genitourinary History: cervical laceration repair at age 13 SHOE SALESMAN History: Reports: Other SHOE SALESMAN History: cervical laceration at age 13, surgically repaired, 3 miscarriages Musculoskeletal History: Reports: Fracture Other Musculoskeletal History: hx of fx ankle Neurological History: Reports: None Psychiatric History: Reports: None Endocrine/Metabolic History: Reports: None Hematologic History: Reports: None Immunologic History: Reports: None Oncologic (Cancer) History: Reports: None Dermatologic History: Reports: None - Infectious Disease History Infectious Disease History: Reports: Chicken Pox Other Infectious Disease History: chicken pox in childhood - Past Surgical History Head Surgeries/Procedures: Reports: None HEENT Surgical History: Reports: None Cardiovascular Surgical History: Reports: None Endocrine Surgical History: Reports: None Musculoskeletal Surgical History: Reports: None Social & Family History - Family History Family Medical History: Noncontributory HEENT: Reports: None - Tobacco Use Smoking Status *Q: Never Smoker Second Hand Smoke Exposure: No - Caffeine Use Caffeine Use: Reports: Coffee - Recreational Drug Use Recreational Drug Use: No ED ROS GENERAL - Review of Systems Review Of Systems: See Below ED EXAM - Physical Exam Exam: See Below Course - Vital Signs Text/Narrative:: Given left lower pelvic pain and vaginal bleeding, obvious concern for ectopic . IV access established and labs were sent off. Noted to be mildly tachycardic but with a stable blood pressure. CBC shows normal hemoglobin and platelet count. Normal lactate, normal electrolytes and renal function. Serum beta hCG 443. Urinalysis shows moderate occult blood. Rh+, so RhoGam is not indicated. I did offer pain medication, which the patient declined. We did obtain a pelvic ultrasound study which was concerning for a left-sided ectopic with associated free fluid. The on-call child adolescent psychiatrist Dr. Ha was immediately paged and responded to the emergency department. Additional IV access was established. Patient will be going to the operating room emergently for suspicion of ectopic . Transferred to the OR in good condition. Last Recorded V/S: Last Vital Signs Temp 36.4 C 02/23/20 02:56 Pulse 68 02/23/20 03:31 Resp 11 L 02/23/20 03:31 BP 110/76 02/23/20 03:31 Pulse Ox 99 02/23/20 03:31 - Orders/Labs/Meds Orders: Active Orders 24 hr Category Date Time Status Admission Status [Patient Status] [ADT] Stat ADT 02/23/20 00:04 Active Antiembolic Devices [RC] PER UNIT ROUTINE Care 02/23/20 00:28 Active Pelvic Exam, Set Up [RC] ASDIRECTED Care 02/22/20 22:10 Active Verify Patient Consent Obtain [RC] PER UNIT ROUTINE Care 02/23/20 00:28 Active Vital Signs [RC] PER UNIT ROUTINE Care 02/23/20 00:28 Active NPO Now [Nothing per Oral Now Diet] [DIET] Diet 02/22/20 Dinner Active Nothing per Oral Now Diet [DIET] Diet 02/23/20 Dinner Active Lactated Ringers [Ringers, Lactated] 1,000 ml Med 02/23/20 00:30 Active IV ASDIRECTED Sodium Chloride 0.9% [Normal Saline] Med 02/23/20 00:27 Active 10 ml IV ASDIRECTED PRN Sodium Chloride 0.9% [Saline Flush] Med 02/23/20 00:27 Active 10 ml FLUSH ASDIRECTED PRN Sodium Chloride 0.9% [Saline Flush] Med 02/23/20 00:27 Active 2.5 ml FLUSH ASDIRECTED PRN Peripheral IV Insertion Adult [OM.PC] Urgent Oth 02/23/20 00:28 Ordered Sequential Compression Device [OM.PC] Per Unit Routine Oth 02/23/20 00:28 Ordered Medication Orders Hydrocodone Bitart/Acetaminophen ([place] 325-5 Mg) 2 tab PO Q4H PRN PRN Reason: Pain Hydrocodone Bitart/Acetaminophen ([place] 325-5 Mg) 1 tab PO Q4H PRN PRN Reason: Pain Fentanyl (Sublimaze) 50 mcg IVPUSH Q5M PRN PRN Reason: Pain Lactated Ringer's (Ringers, Lactated) 1,000 mls @ 125 mls/hr IV ASDIRECTED BERE Acetaminophen 1,000 mg/ Premix 100 mls @ 400 mls/hr IV Q6H PRN PRN Reason: Pain Last Admin: 02/23/20 03:19 Dose: 400 mls/hr Documented by: SHAMEKA Sodium Chloride (Saline Flush) 10 ml FLUSH ASDIRECTED PRN PRN Reason: Keep Vein Open Sodium Chloride (Saline Flush) 2.5 ml FLUSH ASDIRECTED PRN PRN Reason: Keep Vein Open Sodium Chloride (Normal Saline) 10 ml IV ASDIRECTED PRN PRN Reason: IV Use Labs: Laboratory Tests 02/22/20 02/22/20 02/22/20 Range/Units 21:52 21:52 22:28 WBC (4.0-11.0) K/uL RBC (4.30-5.90) M/uL Hgb (12.0-16.0) g/dL Hct (36.0-46.0) % MCV (80.0-98.0) fL MCH (27.0-32.0) pg MCHC (31.0-37.0) g/dL RDW Std Deviation (28.0-62.0) fl RDW Coeff of Amari (11.0-15.0) % Plt Count (150-400) K/uL MPV (7.40-12.00) fL Neut % (Auto) (48.0-80.0) % Lymph % (Auto) (16.0-40.0) % Frederick % (Auto) (0.0-15.0) % Eos % (Auto) (0.0-7.0) % Baso % (Auto) (0.0-1.5) % Neut # (Auto) (1.4-5.7) K/uL Lymph # (Auto) (0.6-2.4) K/uL Frederick # (Auto) (0.0-0.8) K/uL Eos # (Auto) (0.0-0.7) K/uL Baso # (Auto) (0.0-0.1) K/uL Nucleated RBC % /100WBC Nucleated RBCs # K/uL Lactate 0.6 (0.20-2.00) mmol/L Sodium (136-145) mmol/L Potassium (3.5-5.1) mmol/L Chloride (98-107) mmol/L Carbon Dioxide (21.0-32.0) mmol/L BUN (7.0-18.0) mg/dL Creatinine (0.6-1.0) mg/dL Est Cr Clr Drug Dosing mL/min Estimated GFR (MDRD) ml/min Glucose (74-106) mg/dL Calcium (8.5-10.1) mg/dL HCG, Quant mIU/mL Urine Color YELLOW Urine Appearance CLEAR Urine pH 6.5 (5.0-8.0) Ur Specific [place] 1.015 (1.001-1.035) Urine Protein NEGATIVE (NEGATIVE) mg/dL Urine Glucose (UA) NEGATIVE (NEGATIVE) mg/dL Urine Ketones NEGATIVE (NEGATIVE) mg/dL Urine Occult Blood MODERATE H (NEGATIVE) Urine Nitrite NEGATIVE (NEGATIVE) Urine Bilirubin NEGATIVE (NEGATIVE) Urine Urobilinogen 0.2 (<2.0) EU/dL Ur Leukocyte Esterase NEGATIVE (NEGATIVE) Urine RBC 0-3 (0-2/HPF) Urine WBC 0-2 (0-5/HPF) Ur Epithelial Cells FEW (NONE-FEW) Urine Bacteria FEW (NEGATIVE) Urine HCG, Qual POSITIVE (NEGATIVE) SARS Virus RNA (PCR) (NEGATIVE) Blood Type Antibody Screen 02/22/20 02/22/20 02/22/20 Range/Units 22:28 22:28 22:28 WBC 8.31 (4.0-11.0) K/uL RBC 4.35 (4.30-5.90) M/uL Hgb 13.2 (12.0-16.0) g/dL Hct 39.1 (36.0-46.0) % MCV 89.9 (80.0-98.0) fL MCH 30.3 (27.0-32.0) pg MCHC 33.8 (31.0-37.0) g/dL RDW Std Deviation 39.3 (28.0-62.0) fl RDW Coeff of Amari 12 (11.0-15.0) % Plt Count 231 (150-400) K/uL MPV 10.90 (7.40-12.00) fL Neut % (Auto) 62.8 (48.0-80.0) % Lymph % (Auto) 31.8 (16.0-40.0) % Frederick % (Auto) 4.5 (0.0-15.0) % Eos % (Auto) 0.8 (0.0-7.0) % Baso % (Auto) 0.1 (0.0-1.5) % Neut # (Auto) 5.2 (1.4-5.7) K/uL Lymph # (Auto) 2.6 H (0.6-2.4) K/uL Frederick # (Auto) 0.4 (0.0-0.8) K/uL Eos # (Auto) 0.1 (0.0-0.7) K/uL Baso # (Auto) 0.0 (0.0-0.1) K/uL Nucleated RBC % 0.0 /100WBC Nucleated RBCs # 0 K/uL Lactate (0.20-2.00) mmol/L Sodium 138 (136-145) mmol/L Potassium 4.1 (3.5-5.1) mmol/L Chloride 102 (98-107) mmol/L Carbon Dioxide 25.4 (21.0-32.0) mmol/L BUN 13 (7.0-18.0) mg/dL Creatinine 0.7 (0.6-1.0) mg/dL Est Cr Clr Drug Dosing 99.63 mL/min Estimated GFR (MDRD) > 60.0 ml/min Glucose 101 (74-106) mg/dL Calcium 9.5 (8.5-10.1) mg/dL HCG, Quant 443.0 mIU/mL Urine Color Urine Appearance Urine pH (5.0-8.0) Ur Specific [place] (1.001-1.035) Urine Protein (NEGATIVE) mg/dL Urine Glucose (UA) (NEGATIVE) mg/dL Urine Ketones (NEGATIVE) mg/dL Urine Occult Blood (NEGATIVE) Urine Nitrite (NEGATIVE) Urine Bilirubin (NEGATIVE) Urine Urobilinogen (<2.0) EU/dL Ur Leukocyte Esterase (NEGATIVE) Urine RBC (0-2/HPF) Urine WBC (0-5/HPF) Ur Epithelial Cells (NONE-FEW) Urine Bacteria (NEGATIVE) Urine HCG, Qual (NEGATIVE) SARS Virus RNA (PCR) (NEGATIVE) Blood Type Antibody Screen 02/22/20 02/22/20 02/22/20 Range/Units 22:28 23:45 23:45 WBC (4.0-11.0) K/uL RBC (4.30-5.90) M/uL Hgb (12.0-16.0) g/dL Hct (36.0-46.0) % MCV (80.0-98.0) fL MCH (27.0-32.0) pg MCHC (31.0-37.0) g/dL RDW Std Deviation (28.0-62.0) fl RDW Coeff of Amari (11.0-15.0) % Plt Count (150-400) K/uL MPV (7.40-12.00) fL Neut % (Auto) (48.0-80.0) % Lymph % (Auto) (16.0-40.0) % Frederick % (Auto) (0.0-15.0) % Eos % (Auto) (0.0-7.0) % Baso % (Auto) (0.0-1.5) % Neut # (Auto) (1.4-5.7) K/uL Lymph # (Auto) (0.6-2.4) K/uL Frederick # (Auto) (0.0-0.8) K/uL Eos # (Auto) (0.0-0.7) K/uL Baso # (Auto) (0.0-0.1) K/uL Nucleated RBC % /100WBC Nucleated RBCs # K/uL Lactate (0.20-2.00) mmol/L Sodium (136-145) mmol/L Potassium (3.5-5.1) mmol/L Chloride (98-107) mmol/L Carbon Dioxide (21.0-32.0) mmol/L BUN (7.0-18.0) mg/dL Creatinine (0.6-1.0) mg/dL Est Cr Clr Drug Dosing mL/min Estimated GFR (MDRD) ml/min Glucose (74-106) mg/dL Calcium (8.5-10.1) mg/dL HCG, Quant mIU/mL Urine Color Urine Appearance Urine pH (5.0-8.0) Ur Specific [place] (1.001-1.035) Urine Protein (NEGATIVE) mg/dL Urine Glucose (UA) (NEGATIVE) mg/dL Urine Ketones (NEGATIVE) mg/dL Urine Occult Blood (NEGATIVE) Urine Nitrite (NEGATIVE) Urine Bilirubin (NEGATIVE) Urine Urobilinogen (<2.0) EU/dL Ur Leukocyte Esterase (NEGATIVE) Urine RBC (0-2/HPF) Urine WBC (0-5/HPF) Ur Epithelial Cells (NONE-FEW) Urine Bacteria (NEGATIVE) Urine HCG, Qual (NEGATIVE) SARS Virus RNA (PCR) NEGATIVE (NEGATIVE) Blood Type A POSITIVE A POSITIVE Antibody Screen NEGATIVE Meds: Medications Generic Name Dose Route Start Last Admin Trade Name Freq PRN Reason Stop Dose Admin Hydrocodone Bitart/Acetaminophen 2 tab 02/23/20 03:12 [place] 325-5 Mg PO Q4H PRN Pain Hydrocodone Bitart/Acetaminophen 1 tab 02/23/20 03:12 [place] 325-5 Mg PO Q4H PRN Pain Fentanyl 50 mcg 02/23/20 01:12 Sublimaze IVPUSH Q5M PRN Pain Lactated Ringer's 1,000 mls @ 125 mls/hr 02/23/20 00:30 Ringers, Lactated IV ASDIRECTED BERE Acetaminophen 1,000 mg/ Premix 100 mls @ 400 mls/hr 02/23/20 01:12 02/23/20 03:19 IV 400 mls/hr Q6H PRN Administration Pain Sodium Chloride 10 ml 02/23/20 00:27 Saline Flush FLUSH ASDIRECTED PRN Keep Vein Open Sodium Chloride 2.5 ml 02/23/20 00:27 Saline Flush FLUSH ASDIRECTED PRN Keep Vein Open Sodium Chloride 10 ml 02/23/20 00:27 Normal Saline IV ASDIRECTED PRN IV Use Discontinued Medications Generic Name Dose Route Start Last Admin Trade Name Delfin PRN Reason Stop Dose Admin Bupivacaine HCl Confirm 02/23/20 01:20 Sensorcaine-Mpf 0.25% Administered 02/23/20 01:21 Dose 20 ml .ROUTE .STK-MED ONE Fentanyl Confirm 02/23/20 01:03 Sublimaze Administered 02/23/20 01:04 Dose 250 mcg .ROUTE .STK-MED ONE Fentanyl Confirm 02/23/20 02:26 Sublimaze Administered 02/23/20 02:27 Dose 100 mcg .ROUTE .STK-MED ONE Glycopyrrolate Confirm 02/23/20 01:03 Robinul Administered 02/23/20 01:04 Dose 0.8 mg .ROUTE .STK-MED ONE Ketorolac Tromethamine Confirm 02/23/20 01:03 Toradol Administered 02/23/20 01:04 Dose 30 mg .ROUTE .STK-MED ONE Ketorolac Tromethamine 15 mg 02/23/20 03:12 Toradol IVPUSH 02/23/20 03:13 ONETIME ONE Lidocaine Confirm 02/23/20 01:03 Xylocaine-Mpf 2% Administered 02/23/20 01:04 Dose 5 ml .ROUTE .STK-MED ONE Midazolam HCl Confirm 02/23/20 01:02 Versed 1 Mg/Ml Administered 02/23/20 01:03 Dose 2 mg .ROUTE .STK-MED ONE Octyl Cyanoacrylate Confirm 02/23/20 02:40 Dermabond Advance Administered 02/23/20 02:41 Dose 1 applic .ROUTE .STK-MED ONE Ondansetron HCl Confirm 02/23/20 01:03 Zofran Administered 02/23/20 01:04 Dose 4 mg .ROUTE .STK-MED ONE Propofol Confirm 02/23/20 01:02 Diprivan 20 Ml Administered 02/23/20 01:03 Dose 200 mg .ROUTE .STK-MED ONE Rocuronium Mermentau Confirm 02/23/20 01:03 Rocuronium [place] Administered 02/23/20 01:04 Dose 50 mg .ROUTE .STK-MED ONE Departure - Departure Time of Disposition: 01:00 Disposition: Still A Patient 30 Clinical Impression: Ruptured ectopic - Discharge Information *PRESCRIPTION DRUG MONITORING PROGRAM REVIEWED*: Yes *COPY OF PRESCRIPTION DRUG MONITORING REPORT IN PATIENT DILMA: No Critical Care Note - Critical Care Note Total Time (mins): 30 Comments: Critical care time is exclusive of billable procedures and the time to perform these procedures. Critical care time was used to prevent vital system organ failure and deterioration. Critical care time includes bedside management and high-complexity decision making requiring my highest level of mental preparedness and attention. This includes reviewing the patient's chart and prior medical records, ordering and reviewing interpreting laboratory studies and imaging results, interpretation of vital signs and EKG, pulse oximetry, and discussion with the admitting team along with EMS and nursing staff. Ectopic requiring emergent obstetrics consultation, serial monitoring of cardiac output and blood pressure and heart rate. Specialist consultation, child adolescent psychiatrist responded to the emergency department and patient will be going emergently to the operating room for laparoscopy for suspected ruptured ectopic . Sepsis Event Note (ED) - Evaluation Sepsis Screening Result: No Definite Risk - Focused Exam Vital Signs: Vital Signs Temp Pulse Resp BP Pulse Ox 02/23/20 00:22 36.5 C 83 18 119/84 98 02/22/20 23:45 90 18 115/67 98 02/22/20 21:46 36.8 C 92 20 140/96 H 97 - My Orders Last 24 Hours: My Active Orders 02/22/20 Dinner NPO Now [Nothing per Oral Now Diet] [DIET] 02/22/20 22:10 Pelvic Exam, Set Up [RC] ASDIRECTED 02/23/20 00:04 Admission Status [Patient Status] [ADT] Stat - Assessment/Plan Last 24 Hours: My Active Orders 02/22/20 Dinner NPO Now [Nothing per Oral Now Diet] [DIET] 02/22/20 22:10 Pelvic Exam, Set Up [RC] ASDIRECTED 02/23/20 00:04 Admission Status [Patient Status] [ADT] Stat
--- NOTE | 2020-02-23 05:36 | OR ---
SURGEON: Tova Ha MD DATE OF PROCEDURE: 02/23/2020 PREOPERATIVE DIAGNOSES: 1. A 34-year-old G6, P2 at roughly 5 weeks' gestation. 2. Left lower quadrant abdominal pain. 3. Suspected ruptured ectopic . POSTOPERATIVE DIAGNOSES: 1. A 34-year-old G6, P2 at roughly 5 weeks' gestation. 2. Left lower quadrant abdominal pain. 3. Suspected ruptured ectopic . PROCEDURE: Diagnostic laparoscopy and left salpingo-oophorectomy, evacuation of hemoperitoneum. PRIMARY SURGEON: Tova Ha MD [employer] OPERATOR: Donavan Dove, medical student. ANESTHESIA: General endotracheal by Dr. William. IV FLUIDS: 1100 mL LR. ESTIMATED BLOOD LOSS: 150 mL. URINE OUTPUT: Bladder drained prior to the procedure. FINDINGS: Uterus sounded to 8.5 cm. Hemoperitoneum. A normal-appearing right ovary and fallopian tube. Dilated left fallopian tube with exposing ectopic . Left ovary with cyst, subsequent bleeding. Normal peristalsis of the left ureter. INDICATIONS: This is a 34-year-old G6, P2, who has been seen in clinic earlier in the day and for a quantitative HCG due to the positive test at home. At clinic, the HCG was 511. Plan was made to repeat the HCG in the next week to monitor rise. Last evening, the patient called complaining of left lower quadrant pain radiating to her ribs. She was counseled on precautions for pain and when to present to the emergency room. The pain continued and she presented to the emergency department. Ultrasound was obtained, which was concerning for ruptured ectopic with suspected blood in the pelvis. The decision was made to proceed with surgical management of suspected ruptured ectopic . The risks, benefits, and alternatives of the procedure were discussed with the patient prior to surgery. DESCRIPTION OF PROCEDURE: The patient was taken to the operating room, where general anesthesia was obtained. She was placed in the dorsal lithotomy position with legs in Yellofin stirrups. She was prepared and draped in normal sterile fashion. A Graves speculum was inserted into the vagina. The anterior lip of the cervix was grasped with an Allis clamp. The uterus was sounded to 8.5 cm. The cervix was sequentially dilated to a size 8 using Hegar dilators. A HUMI uterine manipulator was introduced and the balloon was inflated within the uterus. The Graves speculum and Allis clamp were removed. Surgeon's gloves were changed. The umbilical fold was infiltrated with 0.25% bupivacaine. A 5 mm stab incision was made in the infraumbilical fold. A 5 mm trocar was inserted under direct laparoscopic visualization. Pneumoperitoneum was established to a pressure of 15 mmHg. A survey of the abdomen revealed normal-appearing liver, gallbladder, and stomach. The pelvic findings were noted as above. A 5 mm right lower quadrant port was placed under direct laparoscopic visualization, 2 cm superior and medial to the anterior superior iliac spine. A 10 mm port was inserted into the left lower quadrant in a similar fashion. The hemoperitoneum was evacuated using the suction senior radiation therapist. The decision was made to proceed with left salpingectomy due to tubal dilation and apparent corrosion of the ectopic out to fimbria with active bleeding. The 5 mm LigaSure device was used to coagulate and transect the mesosalpinx until the tube was freed. At this time, the ovary was further inspected. The cyst tended to have broken open and was actively bleeding. Due to bleeding, the decision was made to proceed with oophorectomy as well. The left ureter was dilated and noted to be peristalsing. The 5 mm LigaSure device was used to coagulate and transect the ovarian vessels and utero-ovarian ligament. A 10 mm EndoCatch bag was inserted into laparoscopic port and the ovary and tube were removed without difficulty. The remainder of the hemoperitoneum was evacuated using suction senior radiation therapist. The pelvis was copiously irrigated. The left pedicle was inspected and noted to be hemostatic. The Jose-Ashley was used to close the 10 mm left lower quadrant port to avoid future hernia development. The remainder of the laparoscopic ports were removed. The skin was closed with 4-0 Monocryl in a subcuticular fashion and Dermabond skin glue was placed over it. The incisions were covered with Tegaderm. The intrauterine balloon was removed and the HUMI manipulator removed from the uterus and vagina. Hemostasis was noted. All sponge, lap, and needle counts were correct. The patient was awakened and taken to recovery room in stable condition. [id number] / MODL /[id number] KEVIN
[2020-02-23 07:45] VITALS: BP 101/59; PULSE 65
--- NOTE | 2020-02-23 07:50 | PCM48HPAN ---
Post Anesthesia Note - EVALUATION WITHIN 48HRS OF ANESTHETIC Vital Signs in Normal Range: Yes Patient Participated in Evaluation: Yes Respiratory Function Stable: Yes Airway Patent: Yes Cardiovascular Function Stable: Yes Hydration Status Stable: Yes Pain Control Satisfactory: Yes Nausea and Vomiting Control Satisfactory: Yes Mental Status Recovered: Yes Vital Signs: Last Vital Signs Temp 37.0 C 02/23/20 07:44 Pulse 65 02/23/20 07:44 Resp 16 02/23/20 07:44 BP 101/59 L 02/23/20 07:44 Pulse Ox 99 02/23/20 07:44
== END 2020-02-23 08:45 | disposition home or self-care (01) ==
LOC: MW.ED 21:22 → MW.SDS 02-23 00:04 → MW.MS 02-23 00:28 → MW.SDS 02-23 00:31
PROVIDERS: ADMIT Obstetrics & Gynecology; ATTEND Obstetrics & Gynecology
DX: O00.102 Left tubal pregnancy without intrauterine pregnancy (principal); N83.12 Corpus luteum cyst of left ovary; O02.89 Other abnormal products of conception; Z01.812 Encounter for preprocedural laboratory examination; Z20.828 Contact with and (suspected) exposure to other viral communicable diseases; Z88.2 Allergy status to sulfonamides
CPT/HCPCS: 36415; 59151; 76801; 80048; 81001; 81025; 83605; 84702; 85025; 86850; 86900; 86901; 87635; 88305; 99285; A9270; J0131; J1885; J2001; J2250; J2405; J2704; J3010; J3490; 00840; 99291; U0002

== ENCOUNTER 2020-08-16 04:59 | Emergency (ER) | payer BC ==
--- NOTE | 2020-08-16 05:57 | EDM.PDOC ---
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 The patient states that she is approximately 4-5 weeks and has been following closely with her money market dealer with her hCG levels given her history of fertility issues. She states that she did have an ectopic last year on the left side. She states that this evening she started to experience right- sided lower pelvic pain which radiates upwards. She rates the pain as 4 out of 10. She denies any aggravating or relieving symptoms. She has not yet tried any pain medications. She denies any vaginal bleeding, vaginal discharge, dysuria, hematuria. She states that it feels similar to the last time she had an ectopic . She states that given her complex history she came to the emergency department for further evaluation. She states that she has been doing repeat hCGs every 2 days and on her last 1 it did not seem to be increasing as it should. She denies any other symptoms. REVIEW OF SYSTEMS: Constitutional: Denies fever, chills. Eyes: Denies eye pain Ears, Nose, Mouth, & Throat: Denies earache Cardiovascular: Denies chest pain Respiratory: Denies shortness of breath Gastrointestinal: Denies Nausea, vomiting, diarrhea, hematochezia. Genitourinary: Positive for right-sided pelvic pain. Denies vaginal bleeding, hematuria, dysuria, vaginal discharge Skin:Denies a rash MSK: Denies joint pain Neurological: Denies blurred vision Psychiatric: Denies depression PAST MEDICAL HISTORY: As per history of present illness and as reviewed below otherwise noncontributory. SURGICAL HISTORY: As per history of present illness and as reviewed below otherwise noncontributory. LMP: Approximately 4 to 5 weeks ago SOCIAL HISTORY: As per history of present illness and as reviewed below otherwise noncontributory. FAMILY HISTORY: As per history of present illness and as reviewed below otherwise noncontributory. EXAMINATION OF ORGAN SYSTEMS/BODY AREAS: Constitutional: Blood pressure is 115/69, heart rate 76, respiratory rate 17 with an oxygen saturation of 100% on room air. Temperature 36.1 General: Overall well-appearing woman who is in no acute distress. Psychiatric: Appropriate mood and affect. Eyes: No scleral icterus or conjunctival erythema ENMT: Moist mucous membranes. No pharyngeal erythema Cardiovascular: Regular, rate, and rhythm. No gallops, murmurs, or rubs. Bilateral upper extremity pulses symmetric and intact. No peripheral edema. Respiratory: Lungs clear to auscultation bilaterally. No wheezes, rales, or rhonchi. Gastrointestinal: Soft, non-tender, non-distended. Normoactive bowel sounds Genitourinary: No suprapubic tenderness no obvious right-sided pelvic tenderness. No CVA tenderness. Musculoskeletal: Normal range of motion. Skin: No lesions or abrasions. Neurological: Alert, GCS 15 MEDICAL DECISION MAKING AND COURSE IN THE ED WITH INTERPRETATION/REVIEW OF DIAGNOSTIC STUDIES: This is a 34-year-old woman with a past medical history of infertility with 3 prior miscarriages and one recent ruptured ectopic who comes to the emergency department with right-sided pelvic pain who is approximately 4 to 5 weeks . At this time given her history of ruptured ectopic and 4 prior miscarriages I did perform a bedside OB ultrasound to evaluate for free fluid and intrauterine as the patient has not yet had a formal ultrasound. Bedside OB ultrasound Indication: Evaluation for free fluid versus intrauterine Bedside transabdominal OB ultrasound reveals a thickened endometrial stripe without any free fluid in the pelvis or right upper quadrant. There was no obvious gestational sac or yolk sac. There was a hypoechoic circular simple structure in the right adnexa with an additional hypoechoic circular simple structure in the right adnexa. There is no obvious yolk sac and is hypoechoic areas to indicate ectopic . Therefore intrauterine is not identified an ectopic is not ruled out.. I did review the patient's chart and the patient did have an hCG level drawn on August 13, 2020 which was 459 and a repeat on August 15, 2020 which is 653 which does not indicate the normal doubling in 48 hours. We will obtain labs including CBC, BMP, quantitative hCG, urinalysis, type and screen. Will obtain a transvaginal OB ultrasound. Urinalysis was a clean catch and was negative for leukocyte esterase, negative for nitrites, and negative for blood. Interpretation: Negative. Laboratory: CBC is unremarkable. BMP reveals hypokalemia at 3.4 otherwise unremarkable. Quantitative hCG is 629 which is down from 653. Blood type is a positive. After labs I did discuss the results with the patient as she had just returned from ultrasound. I did discuss her at this time that the hCG was downtrending likely indicating that she may have an inevitable miscarriage versus ectopic. I discussed that we would need to contact OB for further treatment management pending ultrasound. She states her pain was controlled at this time and still did not request any pain medication. Patient was signed out to [facility] day team physician pending ultrasound. I did already contact Dr. Mayfield however she was in a delivery therefore she will be contacted with further results. DISPOSITION: Patient was signed out to [facility] day team physician CONDITION: Fair PROCEDURES: Bedside transabdominal ultrasound FINAL IMPRESSION(S)/DIAGNOSES: 1. Acute right pelvic pain likely secondary to inevitable versus right-sided ectopic Laith Leung M.D. 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 left flaopian tube and left ovary removed Musculoskeletal History: Reports: Fracture Other Musculoskeletal History: hx of fx ankle Neurological History: Reports: None Psychiatric History: Reports: None Endocrine/Metabolic History: Reports: None Hematologic History: Reports: None Immunologic History: Reports: None Oncologic (Cancer) History: Reports: None Dermatologic History: Reports: None - Infectious Disease History Infectious Disease History: Reports: Chicken Pox Other Infectious Disease History: chicken pox in childhood - Past Surgical History Head Surgeries/Procedures: Reports: None HEENT Surgical History: Reports: None Cardiovascular Surgical History: Reports: None Female Surgical History: Reports: Other (See Below) Other Female Surgeries/Procedures: repair of cervical laceration age 13 Endocrine Surgical History: Reports: None Musculoskeletal Surgical History: Reports: None <Laith Leung - Last Filed: 08/17/20 02:46> Social & Family History - Family History Family Medical History: No Pertinent Family History HEENT: Reports: None - Tobacco Use Tobacco Use Status *Q: Never Tobacco User - Caffeine Use Caffeine Use: Reports: Coffee - Recreational Drug Use Recreational Drug Use: No <Laith Leung - Last Filed: 08/17/20 02:46> ED ROS GENERAL - Review of Systems Review Of Systems: See Below <Laith Leung - Last Filed: 08/17/20 02:46> ED EXAM - Physical Exam Exam: See Below <Laith Leung - Last Filed: 08/17/20 02:46> Course - Vital Signs Last Recorded V/S: Last Vital Signs Temp 36.1 C 08/16/20 05:09 Pulse 75 08/16/20 07:37 Resp 16 08/16/20 07:37 BP 110/75 08/16/20 07:37 Pulse Ox 96 08/16/20 07:37 - Orders/Labs/Meds Labs: Laboratory Tests 08/16/20 08/16/20 08/16/20 Range/Units 05:17 05:40 05:40 WBC 4.80 (4.0-11.0) K/uL RBC 4.21 L (4.30-5.90) M/uL Hgb 13.0 (12.0-16.0) g/dL Hct 37.4 (36.0-46.0) % MCV 88.8 (80.0-98.0) fL MCH 30.9 (27.0-32.0) pg MCHC 34.8 (31.0-37.0) g/dL RDW Std Deviation 40.2 (28.0-62.0) fl RDW Coeff of Amari 13 (11.0-15.0) % Plt Count 199 (150-400) K/uL MPV 10.90 (7.40-12.00) fL Neut % (Auto) 49.4 (48.0-80.0) % Lymph % (Auto) 40.8 H (16.0-40.0) % Davis % (Auto) 7.9 (0.0-15.0) % Eos % (Auto) 1.5 (0.0-7.0) % Baso % (Auto) 0.4 (0.0-1.5) % Neut # (Auto) 2.4 (1.4-5.7) K/uL Lymph # (Auto) 2.0 (0.6-2.4) K/uL Davis # (Auto) 0.4 (0.0-0.8) K/uL Eos # (Auto) 0.1 (0.0-0.7) K/uL Baso # (Auto) 0.0 (0.0-0.1) K/uL Nucleated RBC % 0.0 /100WBC Nucleated RBCs # 0 K/uL Sodium 137 (136-145) mmol/L Potassium 3.4 L (3.5-5.1) mmol/L Chloride 103 (98-107) mmol/L Carbon Dioxide 23.6 (21.0-32.0) mmol/L BUN 9 (7.0-18.0) mg/dL Creatinine 0.8 (0.6-1.0) mg/dL Est Cr Clr Drug Dosing 87.18 mL/min Estimated GFR (MDRD) > 60.0 ml/min Glucose 101 (74-106) mg/dL Calcium 8.9 (8.5-10.1) mg/dL HCG, Quant 629.0 mIU/mL Urine Color YELLOW Urine Appearance CLEAR Urine pH 6.0 (5.0-8.0) Ur Specific [place] 1.015 (1.001-1.035) Urine Protein NEGATIVE (NEGATIVE) mg/dL Urine Glucose (UA) NEGATIVE (NEGATIVE) mg/dL Urine Ketones NEGATIVE (NEGATIVE) mg/dL Urine Occult Blood NEGATIVE (NEGATIVE) Urine Nitrite NEGATIVE (NEGATIVE) Urine Bilirubin NEGATIVE (NEGATIVE) Urine Urobilinogen 0.2 (<2.0) EU/dL Ur Leukocyte Esterase NEGATIVE (NEGATIVE) Blood Type 08/16/20 Range/Units 05:40 WBC (4.0-11.0) K/uL RBC (4.30-5.90) M/uL Hgb (12.0-16.0) g/dL Hct (36.0-46.0) % MCV (80.0-98.0) fL MCH (27.0-32.0) pg MCHC (31.0-37.0) g/dL RDW Std Deviation (28.0-62.0) fl RDW Coeff of Amari (11.0-15.0) % Plt Count (150-400) K/uL MPV (7.40-12.00) fL Neut % (Auto) (48.0-80.0) % Lymph % (Auto) (16.0-40.0) % Davis % (Auto) (0.0-15.0) % Eos % (Auto) (0.0-7.0) % Baso % (Auto) (0.0-1.5) % Neut # (Auto) (1.4-5.7) K/uL Lymph # (Auto) (0.6-2.4) K/uL Davis # (Auto) (0.0-0.8) K/uL Eos # (Auto) (0.0-0.7) K/uL Baso # (Auto) (0.0-0.1) K/uL Nucleated RBC % /100WBC Nucleated RBCs # K/uL Sodium (136-145) mmol/L Potassium (3.5-5.1) mmol/L Chloride (98-107) mmol/L Carbon Dioxide (21.0-32.0) mmol/L BUN (7.0-18.0) mg/dL Creatinine (0.6-1.0) mg/dL Est Cr Clr Drug Dosing mL/min Estimated GFR (MDRD) ml/min Glucose (74-106) mg/dL Calcium (8.5-10.1) mg/dL HCG, Quant mIU/mL Urine Color Urine Appearance Urine pH (5.0-8.0) Ur Specific [place] (1.001-1.035) Urine Protein (NEGATIVE) mg/dL Urine Glucose (UA) (NEGATIVE) mg/dL Urine Ketones (NEGATIVE) mg/dL Urine Occult Blood (NEGATIVE) Urine Nitrite (NEGATIVE) Urine Bilirubin (NEGATIVE) Urine Urobilinogen (<2.0) EU/dL Ur Leukocyte Esterase (NEGATIVE) Blood Type A POSITIVE Departure - Departure Time of Disposition: :29 Condition: Good - Discharge Information *PRESCRIPTION DRUG MONITORING PROGRAM REVIEWED*: Not Applicable *COPY OF PRESCRIPTION DRUG MONITORING REPORT IN PATIENT DILMA: Not Applicable <Waldemar Pierre - Last Filed: 08/16/20 07:25> <Laith Leung - Last Filed: 08/17/20 02:46> - Departure Disposition: Home, Self-Care 01 Clinical Impression: Incomplete miscarriage - Discharge Information Instructions: Incomplete Miscarriage Referrals: Haritha Rahman MD [Physician] - Forms: ED Department Discharge Additional Instructions: You should receive a call from Dr. Rahman's office on Tuesday morning. They will help arrange for repeat blood work and an ultrasound and a visit with them on Tuesday. Over the weekend you may have some mild increased cramping and potentially some bleeding. However if you have any severe abdominal pain severe vaginal bleeding lightheadedness dizziness or any other new symptoms that concern you please call Dr. Rahman's office right away or return to the ER. The following information is given to patients seen in the emergency department who are being discharged to home. This information is to outline your options for follow-up care. We provide all patients seen in our emergency department with a follow-up referral. The need for follow-up, as well as the timing and circumstances, are variable depending upon the specifics of your emergency department visit. If you don't have a primary care physician on staff, we will provide you with a referral. We always advise you to contact your personal physician following an emergency department visit to inform them of the circumstance of the visit and for follow-up with them and/or the need for any referrals to a consulting specialist. The emergency department will also refer you to a specialist when appropriate. This referral assures that you have the opportunity for follow-up care with a specialist. All of these measure are taken in an effort to provide you with optimal care, which includes your follow-up. Under all circumstances we always encourage you to contact your private physician who remains a resource for coordinating your care. When calling for follow-up care, please make the office aware that this follow-up is from your recent emergency room visit. If for any reason you are refused follow-up, please contact the [facility] Emergency Department at and asked to speak to the emergency department charge nurse. Sepsis Event Note (ED) - Evaluation Sepsis Screening Result: No Definite Risk <Laith Leung - Last Filed: 08/17/20 02:46> <Waldemar Pierre - Last Filed: 08/16/20 07:25> - Assessment/Plan Assessment:: I I received signout from this patient from Dr. Leung at 7 AM. On my reassessment patient reports her pain is manageable at this time. I discussed the case with Dr. Enriquez. She reviewed the images herself and feels they are consistent with incomplete miscarriage with collapsing gestational sac and the uterus. Of the 3 potential management options, expectant management, Cytotec, surgery she would lean towards expectant management. However, given patient's extensive history shortly with primarily up to the patient. I discussed these 3 options with the patient and her mother who was also at bedside. They both would prefer expectant management. I relayed this decision to Dr. Enriquez. She stated she would leave a message for Dr. Rahman's nurse and the patient will receive a call on Tuesday AM for an appointment with them for repeat quant HCG and US. I discussed this plan with the patient and her mother they expressed agreement and understanding. Standard return precautions were discussed and understood. (Waldemar Pierre)
[2020-08-16 06:08] LABS: BLOOD UREA NITROGEN,BUN 9 mg/dL (7.0-18.0); CARBON DIOXIDE,CO2 23.6 mmol/L (21.0-32.0); CHLORIDE,CL 103 mmol/L (98-107); GLUCOSE RANDOM 101 mg/dL (74-106); POTASSIUM,K 3.4 mmol/L (3.5-5.1); SODIUM,NA 137 mmol/L (136-145)
--- NOTE | 2020-08-16 07:26 | US ---
INDICATION: Right lower quadrant pain, history of ectopic TECHNIQUE: Transvaginal ultrasound of the pelvis performed with color-flow and power Doppler evaluation. COMPARISON: None FINDINGS: Within the endometrial canal, there is a complex fluid collection with heterogeneous increased echotexture measuring 1.2 x 0.3 centimeters. There is also a small anechoic fluid collection measuring 2 millimeters. No yolk sac or pole. Decidual reaction is present. Multiple right ovarian cysts are noted, measuring 2.0 x 1.7 x 1.8 centimeters, 1.5 x 0.8 x 0.5 centimeters and 3.5 x 3.3 x 3.1 centimeters. The left ovary is not definitively visualized although there is no left adnexal mass. No excess pelvic free fluid. Normal blood flow to the right ovary. IMPRESSION: Complex fluid collection within the endometrial canal likely representing subchorionic hemorrhage measuring 1.2 x 0.3 centimeters. Possible adjacent gestational sac measuring 2 millimeters. No pole or yolk sac. Multiple right ovarian simple cysts measuring up to 3.5 centimeters. No adnexal mass or excess pelvic free fluid. Overall, the findings may represent a very early intrauterine although ectopic is not excluded on this single examination and follow-up ultrasound in 2 weeks recommended along with serial HCG measurements. Dictated by Delfin Su MD @ Aug 16 2020 7:17AM Signed by Dr. Delfin Su @ Aug 16 2020 7:24AM
[2020-08-16 07:37] VITALS: BP 110/75; PULSE 75
== END 2020-08-16 07:37 | disposition home or self-care (01) ==
LOC: MW.ED 04:59
DX: O03.4 Incomplete spontaneous abortion without complication (principal); Z88.2 Allergy status to sulfonamides
CPT/HCPCS: 36415; 76817; 76817-26; 80048; 81003; 84702; 85025; 86900; 86901; 99283; 99284-25

== ENCOUNTER 2021-12-10 12:32 | Inpatient (IN) | payer BC ==
[2021-12-10] MEDS ORDERED: Water For Irrigation,Sterile 1,000 ML Container IRR PRN (14:03)
[2021-12-10] MEDS ORDERED: Misoprostol 200 MCG Tab PO PRN (14:03)
[2021-12-10] MEDS ORDERED: Tranexamic Acid 1,000 MG in Sodium Chloride 0.9% 100 ML IV PRN (14:03)
[2021-12-10] MEDS ORDERED: Butorphanol 1 MG/ML SDV IVPUSH PRN (14:03)
[2021-12-10] MEDS ORDERED: Sodium Chloride 0.9% 20 ML SDV IV PRN (14:03)
[2021-12-10] MEDS ORDERED: Lidocaine 1% 50 ML MDV INJECT PRN (14:03)
[2021-12-10] MEDS ORDERED: Carboprost Tromethamine 250 MCG/1 ML Amp IM PRN (14:03)
[2021-12-10] MEDS ORDERED: Methylergonovine 0.2 MG/1 ML Amp IM PRN (14:03)
[2021-12-10] MEDS ORDERED: Sodium Chloride 0.9% 2.5 ML Syringe FLUSH PRN (14:03)
[2021-12-10] MEDS ORDERED: Sodium Chloride 0.9% 10 ML Syringe FLUSH PRN (14:03)
[2021-12-10] MEDS ORDERED: Lactated Ringers 1,000 ML IV SCH (14:15)
[2021-12-10] MEDS ORDERED: Oxytocin/0.9 % Sodium Chloride 30 UNIT/500 ML BAG IV SCH (14:15)
[2021-12-10] MEDS ORDERED: ePHEDrine 50 MG/ML SDV IVPUSH PRN (15:31)
[2021-12-10] MEDS ORDERED: Ropivacaine HCl/PF 400 MG in Premix Bag 1 BAG EPIDUR SCH (15:45)
[2021-12-10] MEDS ORDERED: Acetaminophen 500 MG Tab PO PRN ×2 (17:28)
[2021-12-10] MEDS ORDERED: Bisacodyl 10 MG Supp RECTAL PRN (17:28)
[2021-12-10] MEDS ORDERED: Lanolin 100% Cream 7 GM Tube TOP PRN (17:28)
[2021-12-10] MEDS ORDERED: Ibuprofen 400 MG Tab PO PRN (17:28)
[2021-12-10] MEDS ORDERED: Benzocaine/Menthol 20%-0.5% Spray 78 GM Cannister TOP PRN (17:28)
[2021-12-10] MEDS ORDERED: Witch Hazel Medicated Pads 40/Jar TOP PRN (17:28)
[2021-12-10] MEDS ORDERED: oxyCODONE 5 MG Tab PO PRN (17:28)
[2021-12-10] MEDS ORDERED: Docusate Sodium 100 MG Cap PO PRN (17:28)
[2021-12-10] MEDS: Ibuprofen 800 MG Tab PO PRN (20:58)
[2021-12-11] MEDS: Ibuprofen 800 MG Tab PO PRN (06:17)
[2021-12-11 16:33] VITALS: BP 124/65; PULSE 76
== END 2021-12-11 19:42 | disposition home or self-care (01) | DRG 560 ==
LOC: MW.OBCHECK 12:32 → MW.OB 12:34 → MW.OBCHECK 14:03 → MW.OB 14:04 → OBSVTOIN 17:11 → MW.OB 21:50
PROVIDERS: ADMIT Obstetrics & Gynecology; ATTEND Obstetrics & Gynecology
PROC: 10E0XZZ Delivery of Products of Conception, External Approach (ICD-10-PCS; principal; 2021-12-10)
PROC: 0KQM0ZZ Repair Perineum Muscle, Open Approach (ICD-10-PCS; 2021-12-10)
PROC: 3E0R3BZ Introduction of Anesthetic Agent into Spinal Canal, Percutaneous Approach (ICD-10-PCS; 2021-12-10)
PROC: 00HU33Z Insertion of Infusion Device into Spinal Canal, Percutaneous Approach (ICD-10-PCS; 2021-12-10)
DX: O70.1 Second degree perineal laceration during delivery (principal); Z3A.38 38 weeks gestation of pregnancy; Z37.0 Single live birth; Z20.822 Contact with and (suspected) exposure to COVID-19; Z88.2 Allergy status to sulfonamides
CPT/HCPCS: 01967; 36415; 51702; 59025; 59409; 82803; 84112; 85014; 85018; 85027; 86592; 86850; 86900; 86901; A9270-GY; J2590; J2795; J7120; U0002